=== PATIENT | female | born 1945 | race Caucasian/White ===

== ENCOUNTER → 2016-07-27 | Outpatient (CLI) | payer OTHER ==
[2015-08-26 11:27] VITALS: BP 136/63
[2016-07-27 11:23] LABS: BASOPHILS # (AUTO) 0.1 X10^3/uL (0.0-0.1); BASOPHILS % (AUTO) 0.8 % (0.2-1.0); EOSINOPHILS # (AUTO) 0.1 x10^3/uL (0.0-0.2); EOSINOPHILS % (AUTO) 1.3 % (0.9-2.9); HEMATOCRIT 36.6 % (36.0-47.0); HEMOGLOBIN 11.9 g/dL (12.0-16.0); LYMPHOCYTES # (AUTO) 1.8 X10^3/uL (1.3-2.9); LYMPHOCYTES % (AUTO) 27.6 % (21.0-51.0); MEAN CORPUSCULAR HEMOGLOBIN 24.8 pg (27.0-34.0); MEAN CORPUSCULAR HGB CONC 32.4 g/dL (33.0-35.0); MEAN CORPUSCULAR VOLUME 76.5 fL (80.0-100.0); MEAN PLATELET VOLUME 8.7 fL (7.4-11.0); MONOCYTES # (AUTO) 0.5 x10^3/uL (0.3-0.8); NEUTROPHILS # (AUTO) 4.2 x10^3/uL (2.2-4.8); NEUTROPHILS % (AUTO) 63.3 % (42.0-75.0); PLATELET COUNT 196 X10^3/uL (150.0-450.0); RED BLOOD COUNT 4.79 X10^6/uL (3.5-5.4); RED CELL DISTRIBUTION WIDTH 16.8 % (11.6-16.5); WHITE BLOOD COUNT 6.7 X10^3/uL (3.6-10.0)
[2016-07-27 11:39] LABS: ALBUMIN 3.1 g/dL (3.4-5.0); BLOOD UREA NITROGEN 17 mg/dL (7-18); CALCIUM 8.5 mg/dL (8.5-10.1); CHLORIDE 109 mmol/L (98-107); CHOL/HDL RATIO 2.9 (0.0-5.0); CHOLESTEROL 144 mg/dL (0-200); COR CA(FOR HYPOALB) 9.2 mg/dL (8.5-10.1); COR NA(FOR HYPERGLY) 146 mmol/L (136-145); CREATININE 1.03 mg/dL (0.55-1.02); GLUCOSE 118 mg/dL (65-99); HDL CHOLESTEROL 50 mg/dL (40-60); PHOSPHORUS 3.5 mg/dL (2.6-4.7); SODIUM 146 mmol/L (136-145); TRIGLYCERIDES 174 mg/dL (0-150); eGFR BLACK RACES > 60 (>60); eGFR NON BLACK RACES 56 (>60)
[2016-07-27 11:54] LABS: PLATELET MORPHOLOGY COMMENT NORMAL (NORMAL)
== END ==
LOC: LAB 11:01
PROVIDERS: ATTEND Internal Medicine
DX: I12.9 Hypertensive chronic kidney disease with stage 1 through stage 4 chronic kidney disease, or unspecified chronic kidney disease (principal); N18.3 Chronic kidney disease, stage 3 (moderate)
CPT/HCPCS: 36415; 80061; 80069; 84550; 85025

== ENCOUNTER → 2016-09-13 | Outpatient (CLI) | payer OTHER ==
[2015-08-26 11:27] VITALS: BP 136/63
--- NOTE | 2016-09-13 14:42 | RAD ---
HISTORY: Lumbar radiculopathy Study: Lumbar spine three view Comparison: None Findings: The bones are osteopenic. The alignment is normal. The vertebral bodies are of average height. The d isc spaces are preserved with the exception of narrowing at L5-S1. The pedicles are intact. The SI j oints are normal. Facet degenerative joint disease is present in the lower lumbar spine bilaterally. IMPRESSION: Degenerative disc disease L5-S1. Facet degenerative joint disease. Osteopenia Reported By:
== END | disposition home or self-care (01) | DRG 552 ==
LOC: RAD 13:35
PROVIDERS: ATTEND Nurse Practitioner Family
DX: M54.5 Low back pain (principal); M54.17 Radiculopathy, lumbosacral region; M51.37 Other intervertebral disc degeneration, lumbosacral region
CPT/HCPCS: 72100

== ENCOUNTER → 2016-10-05 | Outpatient (CLI) | payer OTHER ==
[2015-08-26 11:27] VITALS: BP 136/63
--- NOTE | 2016-10-05 14:20 | MRI ---
HISTORY: Radiculopathy. Study: MRI lumbar spine without contrast. Comparison: Lumbar spine series dated September 13, 2016, CT abdomen/pelvis dated May 06, 2015, and at renal ultrasound dated May 06, 2015. Technique: Multiplanar multi-sequence MRI of the lumbar spine was obtained. Sagittal T1, sagittal T 2, and stir weighted images, axial T1, and axial T2 images were obtained. Findings: Anatomic alignment without obvious fracture or listhesis. Multilevel disc desiccation without signif icant disc height loss. The visualized bone marrow signal appears normal. The conus medullaris termi nates at L1. New and partially visualized 2.3 cm left inferior renal pole cystic lesion. Remaining s oft tissue appears normal. L1 -- L2: No significant disc bulge, neural foraminal narrowing, or spinal canal stenosis. L2 -- L3: No significant disc bulge, neural foraminal narrowing, or spinal canal stenosis. L3 -- L4: Broad-based disc bulge without evidence of neural foraminal narrowing or spinal canal sten osis. L4 -- L5: Broad-based disc bulge without evidence of neural foraminal narrowing or spinal canal sten osis. L5 -- S1: Broad-based disc bulge that extends into the lateral recesses causing mild bilateral neura l foraminal narrowing. No significant spinal canal stenosis. IMPRESSION: 1. Broad-based disc bulge that extends into the lateral recesses causing mild bilateral neural marilyn inal narrowing. No significant spinal canal stenosis. 2. Incompletely visualized 2.3 cm left inferior renal pole cystic lesion. Consider dedicated renal u ltrasound for further characterization. Reported By:
== END | disposition home or self-care (01) | DRG 552 ==
LOC: RAD 12:51
PROVIDERS: ATTEND Nurse Practitioner
DX: M54.17 Radiculopathy, lumbosacral region (principal); M51.26 Other intervertebral disc displacement, lumbar region
CPT/HCPCS: 72148

== ENCOUNTER → 2016-11-08 | Outpatient (CLI) | payer OTHER ==
[2015-08-26 11:27] VITALS: BP 136/63
[2016-11-08 09:52] LABS: BASOPHILS % (AUTO) 0.7 % (0.2-1.0); EOSINOPHILS # (AUTO) 0.2 x10^3/uL (0.0-0.2); EOSINOPHILS % (AUTO) 2.4 % (0.9-2.9); HEMATOCRIT 34.4 % (36.0-47.0); HEMOGLOBIN 11.2 g/dL (12.0-16.0); LYMPHOCYTES # (AUTO) 2.3 X10^3/uL (1.3-2.9); LYMPHOCYTES % (AUTO) 35.7 % (21.0-51.0); MEAN CORPUSCULAR HEMOGLOBIN 25.3 pg (27.0-34.0); MEAN CORPUSCULAR HGB CONC 32.7 g/dL (33.0-35.0); MEAN CORPUSCULAR VOLUME 77.4 fL (80.0-100.0); MEAN PLATELET VOLUME 9.7 fL (7.4-11.0); MONOCYTES # (AUTO) 0.6 x10^3/uL (0.3-0.8); MONOCYTES % (AUTO) 9.1 % (0.0-13.0); NEUTROPHILS # (AUTO) 3.3 x10^3/uL (2.2-4.8); NEUTROPHILS % (AUTO) 52.1 % (42.0-75.0); PLATELET COUNT 199 X10^3/uL (150.0-450.0); RED BLOOD COUNT 4.45 X10^6/uL (3.5-5.4); RED CELL DISTRIBUTION WIDTH 17.6 % (11.6-16.5); WHITE BLOOD COUNT 6.3 X10^3/uL (3.6-10.0)
[2016-11-08 10:57] LABS: HYPOCHROMASIA SLIGHT; PLATELET MORPHOLOGY COMMENT NORMAL (NORMAL)
[2016-11-09 09:37] LABS: ALBUMIN 3.4 g/dL (3.4-5.0); BLOOD UREA NITROGEN 14 mg/dL (7-18); CALCIUM 8.5 mg/dL (8.5-10.1); CARBON DIOXIDE 29.1 mmol/L (21-32); CHLORIDE 109 mmol/L (98-107); CHOL/HDL RATIO 2.4 (0.0-5.0); CHOLESTEROL 153 mg/dL (0-200); COR NA(FOR HYPERGLY) 146 mmol/L (136-145); CREATININE 0.95 mg/dL (0.55-1.02); GLUCOSE 127 mg/dL (65-99); HDL CHOLESTEROL 63 mg/dL (40-60); PHOSPHORUS 3.7 mg/dL (2.6-4.7); SODIUM 145 mmol/L (136-145); TRIGLYCERIDES 106 mg/dL (0-150); eGFR BLACK RACES > 60 (>60); eGFR NON BLACK RACES > 60 (>60)
== END ==
LOC: LAB 08:52
PROVIDERS: ATTEND Internal Medicine
DX: I12.9 Hypertensive chronic kidney disease with stage 1 through stage 4 chronic kidney disease, or unspecified chronic kidney disease (principal); N18.3 Chronic kidney disease, stage 3 (moderate)
CPT/HCPCS: 36415; 80061; 80069; 85025

== ENCOUNTER → 2016-12-02 | Outpatient (CLI) | payer OTHER ==
[2015-08-26 11:27] VITALS: BP 136/63
--- NOTE | 2016-12-05 08:22 | RAD ---
HISTORY: Left hip pain, nontraumatic Study: Left hip AP, frog-leg lateral, AP pelvis Comparison: None Findings: The pelvic bones and SI joints are intact. The left hip joint is intact. There is mild degenerative j oint space narrowing present. No joint erosions are noted. No fracture, lytic, or blastic lesion is i dentified. IMPRESSION: Mild degenerative joint space narrowing left hip Reported By:
== END | disposition home or self-care (01) ==
LOC: RAD 16:37
PROVIDERS: ATTEND Orthopaedic Surgery Orthopaedic Surgery of the Spine
DX: M25.552 Pain in left hip (principal); M16.12 Unilateral primary osteoarthritis, left hip
CPT/HCPCS: 73501

== ENCOUNTER → 2017-01-30 | Outpatient (CLI) | payer OTHER ==
[2015-08-26 11:27] VITALS: BP 136/63
== END ==
LOC: RAD 11:36
PROVIDERS: ATTEND Internal Medicine
DX: Z12.31 Encounter for screening mammogram for malignant neoplasm of breast (principal)
CPT/HCPCS: 77067

== ENCOUNTER → 2017-03-13 | Outpatient (CLI) | payer OTHER ==
[2015-08-26 11:27] VITALS: BP 136/63
[2017-03-13 09:22] LABS: BASOPHILS # (AUTO) 0.1 X10^3/uL (0.0-0.1); EOSINOPHILS # (AUTO) 0.1 x10^3/uL (0.0-0.2); EOSINOPHILS % (AUTO) 1.5 % (0.9-2.9); HEMATOCRIT 35.2 % (36.0-47.0); HEMOGLOBIN 11.3 g/dL (12.0-16.0); LYMPHOCYTES # (AUTO) 1.8 X10^3/uL (1.3-2.9); LYMPHOCYTES % (AUTO) 25.7 % (21.0-51.0); MEAN CORPUSCULAR HEMOGLOBIN 24.5 pg (27.0-34.0); MEAN CORPUSCULAR HGB CONC 32.2 g/dL (33.0-35.0); MEAN CORPUSCULAR VOLUME 76.1 fL (80.0-100.0); MEAN PLATELET VOLUME 8.8 fL (7.4-11.0); MONOCYTES # (AUTO) 0.6 x10^3/uL (0.3-0.8); MONOCYTES % (AUTO) 8.9 % (0.0-13.0); NEUTROPHILS # (AUTO) 4.3 x10^3/uL (2.2-4.8); NEUTROPHILS % (AUTO) 62.9 % (42.0-75.0); PLATELET COUNT 205 X10^3/uL (150.0-450.0); RED BLOOD COUNT 4.63 X10^6/uL (3.5-5.4); RED CELL DISTRIBUTION WIDTH 16.7 % (11.6-16.5); WHITE BLOOD COUNT 6.9 X10^3/uL (3.6-10.0)
[2017-03-13 09:24] LABS: ALBUMIN 3.4 g/dL (3.4-5.0); BLOOD UREA NITROGEN 17 mg/dL (7-18); CALCIUM 8.8 mg/dL (8.5-10.1); CARBON DIOXIDE 28.5 mmol/L (21-32); CHLORIDE 109 mmol/L (98-107); CHOL/HDL RATIO 2.6 (0.0-5.0); CHOLESTEROL 154 mg/dL (0-200); CREATININE 1.03 mg/dL (0.55-1.02); HDL CHOLESTEROL 60 mg/dL (40-60); PHOSPHORUS 3.5 mg/dL (2.6-4.7); SODIUM 143 mmol/L (136-145); TRIGLYCERIDES 164 mg/dL (0-150); URIC ACID 4.1 mg/dL (2.6-6.0); eGFR BLACK RACES > 60 (>60); eGFR NON BLACK RACES 56 (>60)
[2017-03-13 10:03] LABS: HYPOCHROMASIA SLIGHT; PLATELET MORPHOLOGY COMMENT NORMAL (NORMAL)
== END ==
LOC: LAB 08:35
PROVIDERS: ATTEND Internal Medicine
DX: I12.9 Hypertensive chronic kidney disease with stage 1 through stage 4 chronic kidney disease, or unspecified chronic kidney disease (principal); N18.3 Chronic kidney disease, stage 3 (moderate)
CPT/HCPCS: 36415; 80061; 80069; 84550; 85025

== ENCOUNTER 2017-05-28 12:31 | Inpatient (IN) | payer OTHER ==
[2017-05-28] MEDS ORDERED: ASPIRIN 81 MG CHEWTAB ONE (12:40)
[2017-05-28] MEDS: NITROSTAT SL PRN ×2 (13:10→13:15)
--- NOTE | 2017-05-28 13:11 | DR.GENAD ---
HPI - PCP Primary Care Physician: David - Complaint/Symptoms Chief Complaint Doctors Comments: Patient presents with chest pressure since last ngiht associated with dyspnea. The pressure is non-radiating. In 1997 had heart stent and by-pass surgery in June. She was diagnosed with kidney disease in 2016 due to blood pressure issures; has not been on dialysis. Chief Complaint:: "Last night I started having a lot of pressure in the center of my chest. It got so bad I had to leave buddhism. I have also had some shortness of breath." Self Treatment fo Chief Complaint: PT took 81mg ASA this morning. - Source History Provided: Patient - Mode of Arrival Mode of Arrival: Ambulatory - Timing Onset of Chief Complaint: 05/27/17 PMH - PMH Past Medical History: Yes Past Medical History: Angina, Anxiety, Arthritis, COPD, Coronary Artery Disease , Depression, Dyslipidemia, GERD, Hypertension, [place] Past Surgical History: Yes Surgical History: Angioplasty/Stents, Cholecystectomy, Hysterectomy - Family History History of Family Medical Conditions: Yes Family Medical History: Diabetes Mellitus, Cancer, Coronary Artery Disease, Hypertension - Social History Does patient currently use any type of tobacco product: No Have you used tobacco products in the last 12 months: No Type of Tobacco Use: None Does any household member use tobacco: No Alcohol Use: None Do you use any recreational Drugs:: No Lives With: Family Lives Where: Home - infectious screening In the last 2 months have you had wt loss of >10#?: NO Have you had fever, night sweats or hemotysis?: No Have you traveled outside the country in the last 6 months?: No Isolation: Standard ROS - Review of Systems Eyes: No Symptoms Reported ENTM: No Symptoms Reported Respiratoy: No Symptoms Reported Cardiovascular: No Symptoms Reported Gastrointestinal/Abdominal: No Symptoms Reported Genitourinary: No Symptoms Reported Neurological: No Symptoms Reported Musculoskeletal: No Symptoms Reported Integumentary: No Symptoms Reported Hematologic/Lymphatic: No Symptoms Reported Psychiatric: No Symptoms Reported All Other Systems: Reviewed and Negative PE - Vital Signs Vitals: Temperature 98.4 F Pulse Rate [Apical] 80 Pulse Rate 82 Respiratory Rate 18 Blood Pressure [Left Arm] 172/79 Blood Pressure [Right Arm] 126/60 Blood Pressure 119/55 O2 Sat by Pulse Oximetry 98 - General Limitations: No Limitations General Appearance: Alert, In No Apparent Distress - Head Head Exam: Normal Inspection, Atraumatic - Eyes Eye exam: Normal Appearance, PERRL, EOMI - ENT ENT Exam: Normal Exam External Ear Exam: Normal External Inspection TM/Canal Exam: Bilateral Normal Nose Exam: Normal Nose Exam Mouth Exam: Normal Inspection Throat Exam: Normal Inspection - Neck Neck Exam: Normal Inspection, Full ROM - Chest Chest Inspection: Normal Inspection - Respiratory Respiratory Exam: Normal Lung Sounds Bilat Respiratory Exam: Bilateral Clear to Auscultation - Cardiovascular Cardiovascular Exam: Regular Rate, Normal Rhythm - Abdominal Exam Abdominal Exam: Normal Inspection, Normal Bowel Sounds Abdominal Tenderness: negative: RUQ, RLQ, LUQ, LLQ, Epigastrium, Suprapubic, Diffuse, Mild, Moderate, Severe, Other - Extremities Extremities Exam: Normal Inspection, Full ROM - Back Back Exam: Normal Inspection, Full ROM - Neurologic Neurological Exam: Alert, Oriented X3, CN II-XII Intact - Skin Skin Exam: Warm Course - Reevaluation 1st: Improved - Consultation Called: 15:10 (Dr Richard agreed to admit for chest pain protocol) ROR - Labs Reviewed Result Diagrams: 05/28/17 13:25 05/28/17 13:25 Laboratory: WBC 8.1 X10^3/uL (3.6-10.0) 05/28/17 13:25 RBC 4.33 X10^6/uL (3.5-5.4) 05/28/17 13:25 Hgb 10.9 g/dL (12.0-16.0) L 05/28/17 13:25 Hct 33.3 % (36.0-47.0) L 05/28/17 13:25 MCV 76.8 fL (80.0-100.0) L 05/28/17 13:25 MCH 25.1 pg (27.0-34.0) L 05/28/17 13:25 MCHC 32.7 g/dL (33.0-35.0) L 05/28/17 13:25 RDW 17.1 % (11.6-16.5) H 05/28/17 13:25 Plt Count 202 X10^3/uL (150.0-450.0) 05/28/17 13:25 Plt Count Comment Adequate (ADEQUATE) 05/28/17 13:25 MPV 8.6 fL (7.4-11.0) 05/28/17 13:25 Neut % 62.4 % (42.0-75.0) 05/28/17 13:25 Lymph % 27.8 % (21.0-51.0) 05/28/17 13:25 [place] % 8.7 % (0.0-13.0) 05/28/17 13:25 Eos % 0.8 % (0.9-2.9) L 05/28/17 13:25 Baso % 0.3 % (0.2-1.0) 05/28/17 13:25 Neut # 5.0 x10^3/uL (2.2-4.8) H 05/28/17 13:25 Lymph # 2.2 X10^3/uL (1.3-2.9) 05/28/17 13:25 [place] # 0.7 x10^3/uL (0.3-0.8) 05/28/17 13:25 Eos # 0.1 x10^3/uL (0.0-0.2) 05/28/17 13:25 Baso # 0.0 X10^3/uL (0.0-0.1) 05/28/17 13:25 Absolute Nucleated RBC 0.0 /100WBC 05/28/17 13:25 Plt Morphology Comment Normal (NORMAL) 05/28/17 13:25 RBC Morphology Abnormal (NORMAL) A 05/28/17 13:25 Hypochromasia Slight A 05/28/17 13:25 Anisocytosis Slight A 05/28/17 13:25 Microcytosis Slight A 05/28/17 13:25 INR Target Range - 05/28/17 13:25 INR 0.98 (0.8-1.3) 05/28/17 13:25 PTT 24.7 SECONDS (22.9-36.5) 05/28/17 13:25 PTT Comment - 05/28/17 13:25 D-Dimer 1140 ng/mL (0-400) H* 05/28/17 13:25 Sodium 142 mmol/L (136-145) 05/28/17 13:25 Corrected Sodium TNP 05/28/17 13:25 Potassium 4.0 mmol/L (3.5-5.1) 05/28/17 13:25 Chloride 106 mmol/L (98-107) 05/28/17 13:25 Carbon Dioxide 30.2 mmol/L (21-32) 05/28/17 13:25 BUN 19 mg/dL (7-18) H 05/28/17 13:25 Creatinine 1.21 mg/dL (0.55-1.02) H 05/28/17 13:25 Est GFR (MDRD) Af Amer 56 (>60) L 05/28/17 13:25 Est GFR (MDRD) Non-Af 46 (>60) L 05/28/17 13:25 Glucose 104 mg/dL (65-99) H 05/28/17 13:25 Calcium 9.2 mg/dL (8.5-10.1) 05/28/17 13:25 Corrected Calcium 9.8 mg/dL (8.5-10.1) 05/28/17 13:25 Magnesium 2.0 mg/dL (1.7-2.9) 05/28/17 13:25 Total Bilirubin 0.40 mg/dL (0.2-1.0) 05/28/17 13:25 AST 24 Units/L (15-37) 05/28/17 13:25 ALT 22 Units/L (12-78) 05/28/17 13:25 Alkaline Phosphatase 108 Units/L (46-116) 05/28/17 13:25 Creatine Kinase 84 Units/L (26-192) 05/28/17 13:25 CK-MB (CK-2) < 1.0 ng/mL (0-4.0) 05/28/17 13:25 CK/CKMB % Calc 1.2 % (<4) 05/28/17 13:25 Troponin I < 0.02 ng/mL (0-1.5) 05/28/17 13:25 Total Protein 6.9 g/dL (6.4-8.2) 05/28/17 13:25 Albumin 3.2 g/dL (3.4-5.0) L 05/28/17 13:25 Globulin 3.7 g/dL (2.5-4.5) 05/28/17 13:25 Albumin/Globulin Ratio 0.9 Ratio (1.1-2.1) L 05/28/17 13:25 - XRAY XRAY Interpreted by: Radiologist (Chest: The patient is rotated. The cardiac silhouette is at the upper limits of normal. Interstitial changes are seen within both lungs. The aortic knob is partially calcified. Impression: intersitial changes without evidence of focal consolidation. CTA: No acute pulmonary emboli) - EKG [place]: LAD Rhythm: NSR ST: Lat, Ischemia - Diagnosis Discharge Problem: Chest pain Qualifiers: Chest pain type: unspecified Qualified Code(s): R07.9 - Chest pain, unspecified - Discharge Plan Condition: Stable - Follow ups/Referrals Follow ups/Referrals: Luis Alberto Hernandez [Primary Care Provider] - 3 days - Instructions
[2017-05-28] MEDS: NS 1000 ML 1,000 ML IV SCH ×2 (13:28→21:27)
--- NOTE | 2017-05-28 13:33 | RAD ---
HISTORY: Chest pressure Study: Single-view of the chest Comparison: None Findings: The patient is rotated. The cardiac silhouette is at the upper limits of normal. Interstitial changes are seen within both lungs. The aortic knob is partially calcified. IMPRESSION: Interstitial changes without evidence of focal consolidation. Reported By:
[2017-05-28] MEDS ORDERED: MORPHINE SULFATE INJ 4 MG ONE (13:34)
[2017-05-28 13:35] LABS: BASOPHILS % (AUTO) 0.3 % (0.2-1.0); EOSINOPHILS # (AUTO) 0.1 x10^3/uL (0.0-0.2); EOSINOPHILS % (AUTO) 0.8 % (0.9-2.9); HEMATOCRIT 33.3 % (36.0-47.0); HEMOGLOBIN 10.9 g/dL (12.0-16.0); LYMPHOCYTES # (AUTO) 2.2 X10^3/uL (1.3-2.9); LYMPHOCYTES % (AUTO) 27.8 % (21.0-51.0); MEAN CORPUSCULAR HEMOGLOBIN 25.1 pg (27.0-34.0); MEAN CORPUSCULAR HGB CONC 32.7 g/dL (33.0-35.0); MEAN CORPUSCULAR VOLUME 76.8 fL (80.0-100.0); MEAN PLATELET VOLUME 8.6 fL (7.4-11.0); MONOCYTES # (AUTO) 0.7 x10^3/uL (0.3-0.8); MONOCYTES % (AUTO) 8.7 % (0.0-13.0); NEUTROPHILS % (AUTO) 62.4 % (42.0-75.0); PLATELET COUNT 202 X10^3/uL (150.0-450.0); RED BLOOD COUNT 4.33 X10^6/uL (3.5-5.4); RED CELL DISTRIBUTION WIDTH 17.1 % (11.6-16.5); WHITE BLOOD COUNT 8.1 X10^3/uL (3.6-10.0)
[2017-05-28] MEDS ORDERED: MORPHINE SULFATE INJ 4 MG IVP ONE (13:40)
[2017-05-28 13:41] LABS: HYPOCHROMASIA SLIGHT; PLATELET MORPHOLOGY COMMENT NORMAL (NORMAL)
[2017-05-28 13:42] LABS: ANISOCYTOSIS SLIGHT; MICROCYTOSIS SLIGHT
[2017-05-28 13:59] LABS: BLOOD UREA NITROGEN 19 mg/dL (7-18); CALCIUM 9.2 mg/dL (8.5-10.1); CARBON DIOXIDE 30.2 mmol/L (21-32); CHLORIDE 106 mmol/L (98-107); CREATININE 1.21 mg/dL (0.55-1.02); SODIUM 142 mmol/L (136-145); TROPONIN I < 0.02 ng/mL (0-1.5); eGFR BLACK RACES 56 (>60); eGFR NON BLACK RACES 46 (>60)
[2017-05-28 14:04] LABS: ALANINE AMINOTRANSFERASE 22 Units/L (12-78); ALBUMIN 3.2 g/dL (3.4-5.0); ALKALINE PHOSPHATASE 108 Units/L (46-116); ASPARTATE AMINO TRANSFERASE 24 Units/L (15-37); CKMB % 1.2 % (<4); COR CA(FOR HYPOALB) 9.8 mg/dL (8.5-10.1); CREATINE KINASE 84 Units/L (26-192); CREATINE KINASE MB < 1.0 ng/mL (0-4.0); TOTAL PROTEIN 6.9 g/dL (6.4-8.2)
[2017-05-28] MEDS ORDERED: ZOFRAN INJ 4 MG VIAL ONE (14:43)
[2017-05-28] MEDS ORDERED: NS 100 ML IV 100 ML IV ONE (15:00)
--- NOTE | 2017-05-28 16:01 | CT ---
HISTORY: Chest pressure, elevated D-dimer Study: CTA chest Comparison: CT 09/16/2013 Technique: Multiple axial images of the chest were obtained after the administration of IV contrast. 3D reconstructions were performed utilizing radial maximum intensity projection imaging. Dose reduct ion techniques including Automated Exposure Control (AEC) and adjustment of mA and kV were utilized. Findings: Contrast opacification of the pulmonary arteries is adequate to the level of the segmental branches. No evidence of acute pulmonary emboli. Normal-sized heart post CABG. Atherosclerotic plaque is seen t hroughout the aorta without evidence of aneurysm or dissection. The lungs are clear without effusion, consolidation, or pneumothorax. Airways are patent. The soft tissues and osseous structures appear intact. The visualized portions of the upper abdomen a re grossly unremarkable. IMPRESSION: 1.No acute pulmonary emboli. Reported By:
[2017-05-28] MEDS ORDERED: ZOFRAN INJ 4 MG VIAL IVP PRN (16:27)
[2017-05-28 20:05] LABS: CREATINE KINASE 74 Units/L (26-192); CREATINE KINASE MB < 1.0 ng/mL (0-4.0); TROPONIN I < 0.02 ng/mL (0-1.5)
[2017-05-28 20:08] LABS: CKMB % 1.4 % (<4)
[2017-05-28] MEDS ORDERED: PATIENT'S HOME MEDICATION (Rosuvastatin Calcium [Crestor] 40 MG) PO SCH (21:00)
[2017-05-28] MEDS ORDERED: PATIENT'S HOME MEDICATION (Omeprazole [Prilosec 40 Mg] 40 MG) PO SCH (21:00)
[2017-05-28] MEDS ORDERED: NEURONTIN CAP 400 MG PO SCH (21:00)
[2017-05-28] MEDS ORDERED: TEMAZEPAM PO SCH (21:00)
[2017-05-28] MEDS: CRESTOR TAB 10 MG PO SCH (21:20)
[2017-05-28] MEDS: APRESOLINE TAB 25 MG PO SCH (21:21)
[2017-05-28] MEDS: NEURONTIN CAP 100 MG PO SCH (21:22)
[2017-05-28] MEDS: RESTORIL CAP 30 MG PO SCH (21:23)
[2017-05-28] MEDS: PriLOSEC PO SCH (21:23)
[2017-05-28] MEDS: ALDOMET PO SCH (21:23)
[2017-05-28] MEDS ORDERED: PATIENT'S HOME MEDICATION (Hydralazine Hcl [Hydralazine Hcl] 1 TAB) PO SCH (22:00)
[2017-05-29 02:17] LABS: CKMB % 1.5 % (<4); CREATINE KINASE 67 Units/L (26-192); CREATINE KINASE MB < 1.0 ng/mL (0-4.0); TROPONIN I < 0.02 ng/mL (0-1.5)
[2017-05-29] MEDS: ALDOMET PO SCH (05:18)
[2017-05-29] MEDS: NS 1000 ML 1,000 ML IV SCH ×3 (05:18→21:59)
[2017-05-29] MEDS: APRESOLINE TAB 25 MG PO SCH ×3 (05:18→21:40)
[2017-05-29 05:31] LABS: BASOPHILS % (AUTO) 0.5 % (0.2-1.0); EOSINOPHILS # (AUTO) 0.1 x10^3/uL (0.0-0.2); EOSINOPHILS % (AUTO) 1.9 % (0.9-2.9); HEMATOCRIT 29.2 % (36.0-47.0); HEMOGLOBIN 9.7 g/dL (12.0-16.0); LYMPHOCYTES # (AUTO) 2.1 X10^3/uL (1.3-2.9); LYMPHOCYTES % (AUTO) 32.9 % (21.0-51.0); MEAN CORPUSCULAR HEMOGLOBIN 25.6 pg (27.0-34.0); MEAN CORPUSCULAR HGB CONC 33.1 g/dL (33.0-35.0); MEAN CORPUSCULAR VOLUME 77.3 fL (80.0-100.0); MEAN PLATELET VOLUME 9.2 fL (7.4-11.0); MONOCYTES # (AUTO) 0.6 x10^3/uL (0.3-0.8); MONOCYTES % (AUTO) 9.8 % (0.0-13.0); NEUTROPHILS # (AUTO) 3.6 x10^3/uL (2.2-4.8); NEUTROPHILS % (AUTO) 54.9 % (42.0-75.0); PLATELET COUNT 168 X10^3/uL (150.0-450.0); RED BLOOD COUNT 3.77 X10^6/uL (3.5-5.4); RED CELL DISTRIBUTION WIDTH 17.1 % (11.6-16.5); WHITE BLOOD COUNT 6.5 X10^3/uL (3.6-10.0)
[2017-05-29 05:37] LABS: CHOL/HDL RATIO 3.3 (0.0-5.0)
[2017-05-29 05:47] LABS: ANISOCYTOSIS SLIGHT; HYPOCHROMASIA SLIGHT; PLATELET MORPHOLOGY COMMENT NORMAL (NORMAL)
--- NOTE | 2017-05-29 06:30 | RAD ---
HISTORY: Chest pain Study: Chest AP portable Comparison: 05/28/2017 chest x-ray and chest CT Findings: The heart is enlarged. No congestive heart failure is noted. The aorta is calcified. The lung hernadez are clear. No pleural effusions are identified. The bony thorax is unremarkable. The patient is statu s post median sternotomy and CABG. IMPRESSION: Cardiomegaly without congestive heart failure Lungs clear Reported By:
[2017-05-29] MEDS ORDERED: LEXAPRO ONE (07:51)
[2017-05-29] MEDS: LEXAPRO PO SCH (08:10)
[2017-05-29] MEDS: MICRO K EXTEN CAP 10 MEQ PO SCH (08:10)
[2017-05-29] MEDS: PriLOSEC PO SCH ×2 (08:10→21:42)
[2017-05-29 08:49] LABS: ALANINE AMINOTRANSFERASE 19 Units/L (12-78); ALBUMIN 2.5 g/dL (3.4-5.0); ALKALINE PHOSPHATASE 98 Units/L (46-116); ASPARTATE AMINO TRANSFERASE 22 Units/L (15-37); BLOOD UREA NITROGEN 17 mg/dL (7-18); CALCIUM 7.7 mg/dL (8.5-10.1); CARBON DIOXIDE 24.9 mmol/L (21-32); CHLORIDE 109 mmol/L (98-107); COR CA(FOR HYPOALB) 8.9 mg/dL (8.5-10.1); CREATININE 1.05 mg/dL (0.55-1.02); SODIUM 143 mmol/L (136-145); TOTAL PROTEIN 5.6 g/dL (6.4-8.2); eGFR BLACK RACES > 60 (>60); eGFR NON BLACK RACES 55 (>60)
[2017-05-29] MEDS ORDERED: PATIENT'S HOME MEDICATION (Potassium Chloride [Potassium Chloride] 10 MEQ) PO SCH (09:00)
[2017-05-29] MEDS ORDERED: PATIENT'S HOME MEDICATION (Escitalopram Oxalate [Escitalopram Oxalate] 20 MG) PO SCH (09:00)
--- NOTE | 2017-05-29 09:36 | DR.H&P ---
H&P - History & Physical for Day of: H&P Date: 05/28/17 - Chief Complaint Chief Complaint: chest pain, short of breath - Allergies Allergies/Adverse Reactions: Allergies Allergy/AdvReac Type Severity Reaction Status Date / Time labetalol Allergy Verified 05/28/17 17:22 ranitidine Allergy Verified 05/28/17 12:33 - History of Present Illness History of Present Illness: is a 72 year old patient of ours who presented to ER with complaints of chest pain/pressure and dyspnea. Patient states Last night I started having a lot of pressure in the center of my chest. Patient reports that the pain is non-radiating. She rates pain 6/10. Patient has a history significant to Angioplasty/stents, by-pass surgery, and kidney disease related to blood pressure. On arrival, vital signs were 97.8, 76, 17, 97 %RA, 179/82. Labs were obtained. Abnormal Labs include the following: Hgb 10.9, Hct 33.3, MCV 76.8, MCH 25.1, MCHC 32.7, RDW 17.1, D-Dimer 1140, BUN 19, Creatinine 1.21, GFR (AA) 56, GFR (NON) 46, Glucose 104, Albumin 3.2, A/G ratio 0.9. Cardiac enzymes within normal limits. EKG reported: Sinus rhythm with HR of 91. Chest Xray reported: Interstitial changes without evidence of focal consolidation. A chest CTA was obtained due to elevated D-dimer. It reported No acute pulmonary emboli. She was given Morphine 4mg IVP x 1 dose and nitroglycerine 0.4mg sl x 1 dose. She reported mild improvement in pain. We admitted patient for further evaluation and treatment. She will be placed on the district captain. We will obtain serial EKGs and cardiac enzymes. We plan to follow up with AM labs and continue to monitor patient. - Past Medical History Past Medical History: Angina, Anxiety, Arthritis, COPD, Coronary Artery Disease , Depression, Dyslipidemia, GERD, Hypertension, [place] Additional Medical History: Frequent UTI's, Cervicalgia, Hx TIA, Micro-vascular disease, Multi-nodular goiter - Past Surgical History Surgical History: Appendectomy, , Cholecystectomy, Hysterectomy - Family History Family Medical History: Cancer, [place], Sudden Cardiac - Social History Does patient currently use any type of tobacco product: No Have you used tobacco products in the last 12 months: No Type of Tobacco Use: Cigarettes How many years tobacco product used: 30 Does any household member use tobacco: No Alcohol Use: None Drug Use: None - Medications Home Medications: Aspirin EC [ASPIRIN EC 81 MG *] 81 mg PO DAILY 05/28/17 [History Confirmed 05/28] Clonidine HCl [CATAPRES 0.1 MG TAB *] 0.1 mg PO TID 05/28/17 [History Confirmed 05/28/17] Hydralazine HCl 1 tab PO TID 05/28/17 [History Confirmed 05/28/17] Loratadine [Claritin] 10 mg PO DAILY 05/28/17 [History Confirmed 05/28/17] Methyldopa [ALDOMET 250 MG *] 2 tab PO TID 05/28/17 [History Confirmed 05/28/17] Montelukast Sodium [SINGULAIR TAB 10 MG *] 10 mg PO DAILY 05/28/17 [History Confirmed 05/28/17] - Review of Systems Constitutional: No Symptoms Reported. denies: Fever, Chills, Sweats, Weakness, Malaise, Other Eyes: No Symptoms Reported. denies: See HPI, Pain, Vision Change, Conjunctivae Inflammation, Eyelid Inflammation, Redness, Other ENT: No Symptoms Reported. denies: See HPI, Ear Pain, Ear Discharge, Nose Pain , Nose Discharge, Nose Congestion, Mouth Pain, Mouth Swelling, Throat Pain, Throat Swelling, Other Respiratory: Shortness of Breath. denies: Cough, Dry, Hemoptysis, SOB with Excertion, Pleuritic Pain, Sputum, Wheezing Cardiovascular: Chest Pain, See HPI, Palpitations. denies: Orthopnea, Paroxysmal Noc. Dyspnea, Edema, Light Headedness Gastrointestinal: No Symptoms Reported. denies: See HPI, Nausea, Vomiting, Abdominal Pain, Diarrhea, Constipation, Melena, Hematochezia, Other Genitourinary: No Symptoms Reported. denies: See HPI, Dysuria, Frequency, Incontinence, Hematuria, Retention, Other Musculoskeletal: No Symptoms Reported. denies: See HPI, Shoulder Pain, Arm Pain , Back Pain, Hand Pain, Leg Pain, Foot Pain, Neck Pain, Other Skin: No Symptoms Reported. denies: See HPI, Rash, Lesions, Jaundice, Bruising , Wound, Ecchymosis, Other Neurological: No Symptoms Reported - Physical Exam Vital Signs: Temperature 97.0 F Pulse Rate [Apical] 87 Pulse Rate 82 Respiratory Rate 23 Blood Pressure [Left Arm] 157/70 Blood Pressure [Right Arm] 126/60 Blood Pressure 119/55 O2 Sat by Pulse Oximetry 96 Oriented: Normal Eyes: Normal. negative: Blurred Vision, Diplopia, Discharge, Pain, Redness, Photophobia, Other Ear: Normal. negative: Right, Left, Swelling, Ecchymosis, Hemotypanum, Abrasion , Laceration Nose: Normal. negative: Injected, Discharge, Blood, Other Throat: Normal. negative: Tonsillar Hypertrophy, Red, Exudate, Dry, Other Respiratory: Clear Throughout Cardiovascular: Normal. negative: Tachycardia, Bradycardia, Irregular, S3, S4, Systolic, Diastolic, Murmur, Edema, Other : Normal. negative: Dysuria, Hematuria, Frequency, Discharge, Testicular Pain , Bleeding, , Other Auscultation: Bowel Sounds: Normal. negative: Bruit, Absent, Increased, Decreased, High Pitched, Other Palpation: Normal. negative: Spleen Enlarged, Liver Enlarged, Mass Pulsatile, Other Tenderness: Normal. negative: Rebound, Guarding, Rigidity Skin: Normal Musculoskeletal: Normal Psychiatric: Normal Mood Description: Calm Affect: Normal Speech Pattern: Clear - Assessment/Plan (1) Chest pain, rule out acute myocardial infarction Status: Acute Plan: district captain, serial cardiac enzymes/ekg, 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, continue to monitor
[2017-05-29] MEDS: TOPROL XL PO SCH (10:00)
--- NOTE | 2017-05-29 10:11 | PCM.PROG ---
Progress Note - Progress Note for Day of Date: 05/29/17 - Subjective Subjective: WAS ADMITTED FOR CHEST PAIN, RULE OUT ACUTE MIOCARDIAL INFARCTION. TODAY, SHE IS ALERT AND ORIENTED, LYING IN BED ON MORNING ROUNDS. SHE CONTINUES WITH COMPLAINTS OF MID-STERNAL CHEST PAIN AND MILD SHORTNESS OF BREATH. ON EXAMINATION, HEART IS REGULAR IN RATE AND RHYTHM. BILATERAL LUNGS ARE CLEAR TO AUSCULTATION. ABDOMEN IS ROUND, SOFT, AND NON-TENDER WITH NORMAL BOWEL SOUNDS NOTED IN ALL QUADRANTS. THERE IS NORMAL RANGE OF MOTION NOTED TO ALL EXTREMITIES. HER VITALS THIS MORNING ARE 98.2-76-15-96%-160/72. LABS WERE OBTAINED. ABNORMAL LAB VALUES INCLUDE THE FOLLOWING: HGB 9.7, HCT 29.2, CHLORIDE 109, CREATININE 1.05, GFR 55, CALCIUM 7.7, TOTAL PROTEIN 5.6, ALBUMIN 2.5. HDL CHOLESTEROL 39. CARDIAC ENZYMES HAVE BEEN WITHIN NORMAL LIMITS. TODAY S CHEST XRAY REPORTS CARDIOMEGALY WITHOUT CONGESTIVE HEART FAILURE, LUNGS CLEAR. TODAY, WE WILL OBTAIN AN ECHOCARDIOGRAM AND A CAROTID DOPPLER. WE WILL START METOPROLOL XL 25MG PO DAILY AND HOLD OTHER BLOOD PRESSURE MEDICATIONS. PATIENT IS SCHEDULED TO SEE IN [place] ON 06/07/17. WE WILL FOLLOW UP WITH AM LABS AND CONTINUE TO MONITOR PATIENT. - Past Medical Family Social History Past Med/Fam/Surg Hx: No changes since H&P Allergies: Allergies labetalol Allergy (Verified 05/28/17 17:22) ranitidine Allergy (Verified 05/28/17 12:33) - Review of Systems ROS: No change since H&P - Vital Signs and I&O's Vital Signs: Temperature 97.0 F Pulse Rate [Apical] 87 Pulse Rate 82 Respiratory Rate 23 Blood Pressure [Left Arm] 157/70 Blood Pressure [Right Arm] 126/60 Blood Pressure 119/55 O2 Sat by Pulse Oximetry 96 Intake and Output: Intake & Output 05/26/17 05/27/17 05/28/17 05/29/17 11:59 11:59 11:59 11:59 Intake Total 2476 Balance 2476 - Physical Exam Oriented: Normal Eyes: Normal. negative: Blurred Vision, Diplopia, Discharge, Pain, Redness, Photophobia, Other Ear: Normal. negative: Right, Left, Swelling, Ecchymosis, Hemotypanum, Abrasion , Laceration Nose: Normal. negative: Injected, Discharge, Blood, Other Throat: Normal. negative: Tonsillar Hypertrophy, Red, Exudate, Dry, Other Respiratory: Normal Cardiovascular: Normal. negative: Tachycardia, Bradycardia, Irregular, S3, S4, Systolic, Diastolic, Murmur, Edema, Other : Normal. negative: Dysuria, Hematuria, Frequency, Discharge, Testicular Pain , Bleeding, , Other Auscultation: Bowel Sounds: Normal. negative: Bruit, Absent, Increased, Decreased, High Pitched, Other Palpation: Normal Tenderness: Normal. negative: Rebound, Guarding, Rigidity Skin: Normal Musculoskeletal: Normal Psychiatric: Normal Mood Description: Calm Affect: Normal Speech Pattern: Clear - Laboratory and Diagnostics Result Diagrams: 05/29/17 04:50 05/29/17 04:50 Labs: Laboratory WBC 6.5 X10^3/uL (3.6-10.0) 05/29/17 04:50 RBC 3.77 X10^6/uL (3.5-5.4) 05/29/17 04:50 Hgb 9.7 g/dL (12.0-16.0) L 05/29/17 04:50 Hct 29.2 % (36.0-47.0) L 05/29/17 04:50 MCV 77.3 fL (80.0-100.0) L 05/29/17 04:50 MCH 25.6 pg (27.0-34.0) L 05/29/17 04:50 MCHC 33.1 g/dL (33.0-35.0) 05/29/17 04:50 RDW 17.1 % (11.6-16.5) H 05/29/17 04:50 Plt Count 168 X10^3/uL (150.0-450.0) 05/29/17 04:50 Plt Count Comment Adequate (ADEQUATE) 05/29/17 04:50 MPV 9.2 fL (7.4-11.0) 05/29/17 04:50 Neut % 54.9 % (42.0-75.0) 05/29/17 04:50 Lymph % 32.9 % (21.0-51.0) 05/29/17 04:50 [place] % 9.8 % (0.0-13.0) 05/29/17 04:50 Eos % 1.9 % (0.9-2.9) 05/29/17 04:50 Baso % 0.5 % (0.2-1.0) 05/29/17 04:50 Neut # 3.6 x10^3/uL (2.2-4.8) 05/29/17 04:50 Lymph # 2.1 X10^3/uL (1.3-2.9) 05/29/17 04:50 [place] # 0.6 x10^3/uL (0.3-0.8) 05/29/17 04:50 Eos # 0.1 x10^3/uL (0.0-0.2) 05/29/17 04:50 Baso # 0.0 X10^3/uL (0.0-0.1) 05/29/17 04:50 Absolute Nucleated RBC 0.0 /100WBC 05/29/17 04:50 Plt Morphology Comment Normal (NORMAL) 05/29/17 04:50 RBC Morphology Abnormal (NORMAL) A 05/29/17 04:50 Hypochromasia Slight A 05/29/17 04:50 Anisocytosis Slight A 05/29/17 04:50 Microcytosis Slight A 05/28/17 13:25 INR Target Range - 05/29/17 04:50 INR 0.97 (0.8-1.3) 05/29/17 04:50 PTT 24.7 SECONDS (22.9-36.5) 05/28/17 13:25 PTT Comment - 05/28/17 13:25 D-Dimer 1140 ng/mL (0-400) H* 05/28/17 13:25 Sodium 143 mmol/L (136-145) 05/29/17 04:50 Corrected Sodium TNP 05/29/17 04:50 Potassium 3.6 mmol/L (3.5-5.1) 05/29/17 04:50 Chloride 109 mmol/L (98-107) H 05/29/17 04:50 Carbon Dioxide 24.9 mmol/L (21-32) 05/29/17 04:50 BUN 17 mg/dL (7-18) 05/29/17 04:50 Creatinine 1.05 mg/dL (0.55-1.02) H 05/29/17 04:50 Est GFR (MDRD) Af Amer > 60 (>60) 05/29/17 04:50 Est GFR (MDRD) Non-Af 55 (>60) L 05/29/17 04:50 Glucose 99 mg/dL (65-99) 05/29/17 04:50 Calcium 7.7 mg/dL (8.5-10.1) L 05/29/17 04:50 Corrected Calcium 8.9 mg/dL (8.5-10.1) 05/29/17 04:50 Magnesium 2.0 mg/dL (1.7-2.9) 05/28/17 13:25 Total Bilirubin 0.20 mg/dL (0.2-1.0) 05/29/17 04:50 AST 22 Units/L (15-37) 05/29/17 04:50 ALT 19 Units/L (12-78) 05/29/17 04:50 Alkaline Phosphatase 98 Units/L (46-116) 05/29/17 04:50 Creatine Kinase 67 Units/L (26-192) 05/29/17 01:25 CK-MB (CK-2) < 1.0 ng/mL (0-4.0) 05/29/17 01:25 CK/CKMB % Calc 1.5 % (<4) 05/29/17 01:25 Troponin I < 0.02 ng/mL (0-1.5) 05/29/17 01:25 Total Protein 5.6 g/dL (6.4-8.2) L 05/29/17 04:50 Albumin 2.5 g/dL (3.4-5.0) L 05/29/17 04:50 Globulin 3.1 g/dL (2.5-4.5) 05/29/17 04:50 Albumin/Globulin Ratio 0.8 Ratio (1.1-2.1) L 05/29/17 04:50 Triglycerides 128 mg/dL (0-150) 05/29/17 04:50 Cholesterol 130 mg/dL (0-200) 05/29/17 04:50 LDL Cholesterol, Calc 65 mg/dL (0-100) 05/29/17 04:50 HDL Cholesterol 39 mg/dL (40-60) L 05/29/17 04:50 Cholesterol/HDL Ratio 3.3 (0.0-5.0) 05/29/17 04:50 - Plan (1) Chest pain, rule out acute myocardial infarction Status: Acute Plan: blocklayer, obtain ECHO and carotid doppler, 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, continue to monitor (2) Hypertension Status: Chronic Qualifiers: Hypertension type: essential hypertension Qualified Code(s): I10 - Essential (primary) hypertension Plan: metoprolol xl 25mg po daily,hydralazine 100mg po tid, continue to monitor (3) Depression Status: Chronic Qualifiers: Depression Type: major depressive disorder Major depression recurrence: recurrent Active/Remission status: remission status unspecified Qualified Code(s): F33.9 - Major depressive disorder, recurrent, unspecified Plan: continue lexapro, continue to monitor (4) GERD (gastroesophageal reflux disease) Status: Chronic Qualifiers: Esophagitis presence: esophagitis presence not specified Qualified Code(s) : K21.9 - Gastro-esophageal reflux disease without esophagitis Plan: cotninue prilosec, continue to monitor (5) Hyperlipidemia Status: Chronic Qualifiers: Hyperlipidemia type: mixed hyperlipidemia Qualified Code(s): E78.2 - Mixed hyperlipidemia Plan: continue crestor, continue to monitor
[2017-05-29] MEDS ORDERED: MORPHINE SULFATE INJ 2 MG INJ IVP PRN (10:18)
--- NOTE | 2017-05-29 15:06 | VAS ---
HISTORY: Concern for carotid artery stenosis. Chest pain and dyspnea. Technique: Multiple ramirez scale and color flow Doppler images of the right and left carotid arterial s ystem were obtained. The vertebral arterial system was evaluated as well. Findings: Nonocclusive color flow Doppler is seen throughout the right and left carotid arterial system. No hem odynamically significant carotid arterial stenosis is seen based on velocity criteria. There is mild atherosclerosis and plaque formation of the bilateral carotid bulbs and proximal ICAs with associated intimal thickening but without evidence for high-grade stenosis (>70%) or occlusion of the carotid a rteries. The right and left vertebral artery demonstrate antegrade flow. IMPRESSION: Mild atherosclerosis and plaque formation of the bilateral carotid bulbs and proximal ICAs with assoc iated carotid intimal thickening but without evidence for high-grade stenosis or occlusion of the car otid arteries, based on Doppler velocity criteria. Appropriate, antegrade, vertebral arterial flow. Peak right ICA velocity: 116 cm/sec. Peak left ICA velocity: 93 cm/sec. Right ICA to CCA ratio: 1.2. Left ICA to CCA ratio: 1.4. Reported By:
[2017-05-29 15:40] VITALS: BMI 27.4
[2017-05-29] MEDS: NEURONTIN CAP 100 MG PO SCH (21:41)
[2017-05-29] MEDS: CRESTOR TAB 10 MG PO SCH (21:42)
[2017-05-29] MEDS: RESTORIL CAP 30 MG PO SCH (21:58)
[2017-05-30] MEDS: APRESOLINE TAB 25 MG PO SCH ×3 (05:07→21:03)
[2017-05-30 05:31] LABS: BASOPHILS % (AUTO) 0.4 % (0.2-1.0); EOSINOPHILS # (AUTO) 0.1 x10^3/uL (0.0-0.2); EOSINOPHILS % (AUTO) 1.2 % (0.9-2.9); HEMATOCRIT 30.5 % (36.0-47.0); HEMOGLOBIN 10.2 g/dL (12.0-16.0); LYMPHOCYTES # (AUTO) 2.4 X10^3/uL (1.3-2.9); LYMPHOCYTES % (AUTO) 26.5 % (21.0-51.0); MEAN CORPUSCULAR HEMOGLOBIN 25.6 pg (27.0-34.0); MEAN CORPUSCULAR HGB CONC 33.3 g/dL (33.0-35.0); MEAN CORPUSCULAR VOLUME 76.7 fL (80.0-100.0); MEAN PLATELET VOLUME 8.9 fL (7.4-11.0); MONOCYTES # (AUTO) 0.9 x10^3/uL (0.3-0.8); MONOCYTES % (AUTO) 9.7 % (0.0-13.0); NEUTROPHILS # (AUTO) 5.6 x10^3/uL (2.2-4.8); NEUTROPHILS % (AUTO) 62.2 % (42.0-75.0); PLATELET COUNT 182 X10^3/uL (150.0-450.0); RED BLOOD COUNT 3.98 X10^6/uL (3.5-5.4); RED CELL DISTRIBUTION WIDTH 17.4 % (11.6-16.5)
[2017-05-30 05:49] LABS: HYPOCHROMASIA SLIGHT; PLATELET MORPHOLOGY COMMENT NORMAL (NORMAL)
[2017-05-30 05:50] LABS: ANISOCYTOSIS SLIGHT
[2017-05-30 05:54] LABS: ALANINE AMINOTRANSFERASE 19 Units/L (12-78); ALBUMIN 2.8 g/dL (3.4-5.0); ALKALINE PHOSPHATASE 103 Units/L (46-116); ASPARTATE AMINO TRANSFERASE 21 Units/L (15-37); BLOOD UREA NITROGEN 16 mg/dL (7-18); CALCIUM 8.1 mg/dL (8.5-10.1); CARBON DIOXIDE 25.5 mmol/L (21-32); CHLORIDE 110 mmol/L (98-107); COR CA(FOR HYPOALB) 9.1 mg/dL (8.5-10.1); CREATININE 1.05 mg/dL (0.55-1.02); SODIUM 144 mmol/L (136-145); TOTAL PROTEIN 6.3 g/dL (6.4-8.2); eGFR BLACK RACES > 60 (>60); eGFR NON BLACK RACES 55 (>60)
[2017-05-30] MEDS: NS 1000 ML 1,000 ML IV SCH ×4 (06:44→22:28)
[2017-05-30] MEDS ORDERED: POTASSIUM CHL 40 MEQ/NS 0.45% 500 ML IV PRN (07:10)
[2017-05-30] MEDS ORDERED: MAGNESIUM SULFATE 1 GM/100 mL PREMIX 1 GM/100 ML BAG IV PRN (07:10)
[2017-05-30] MEDS ORDERED: K-LYTE EFFERVESCENT PO PRN (07:10)
[2017-05-30] MEDS ORDERED: POTASSIUM CHL 60 MEQ/NS 0.45% 500 ML IV PRN (07:10)
[2017-05-30] MEDS ORDERED: POTASSIUM CHLORIDE LIQ 20 MEQ UDC PO PRN (07:10)
[2017-05-30] MEDS ORDERED: K-RIDER 10 MEQ/NS 100 ML 10 MEQ/100 ML BAG IV PRN (07:10)
[2017-05-30] MEDS ORDERED: MAG-OX TAB PO PRN (07:10)
[2017-05-30] MEDS ORDERED: LEXAPRO ONE (08:23)
[2017-05-30] MEDS: LEXAPRO PO SCH (08:34)
[2017-05-30] MEDS: TOPROL XL PO SCH (08:34)
[2017-05-30] MEDS: PriLOSEC PO SCH ×2 (08:34→20:41)
[2017-05-30] MEDS: MICRO K EXTEN CAP 10 MEQ PO SCH (08:34)
[2017-05-30] MEDS ORDERED: CATAPRES-TTS-2 TD SCH (10:00)
[2017-05-30] MEDS: MUCOMYST 20% 200 MG/ML PO SCH ×3 (12:35→20:40)
--- NOTE | 2017-05-30 18:47 | CT ---
History: Uncontrolled hypertension Study: CTA renal arteries with contrast. Three-dimensional MIPS were obtained in multiple degrees of obliquity. Sagittal and coronal reformations were provided. Oblique reformations were performed of th e renal arteries. Findings: There is moderate atherosclerotic disease in the wall of the abdominal aorta. There is no a neurysm or dissection. There are single renal arteries to each kidney. There are small calcified plaq ues at the origins of the both the right and left renal arteries. There is moderate to severe stenosi s at the origin of the right renal artery. There is no poststenotic dilatation. There is a 2.3 cm exo phytic cyst off the lower pole of the left kidney. There is no aneurysm of the renal arteries. Impression: 1. Moderate to severe stenosis at the origin of the right renal artery 2. Small calcified plaque without significant stenosis at the origin of the left renal artery Reported By:
[2017-05-30] MEDS: NORVASC TAB 10 MG PO SCH (19:45)
[2017-05-30] MEDS: CRESTOR TAB 10 MG PO SCH (20:40)
[2017-05-30] MEDS: RESTORIL CAP 30 MG PO SCH (20:41)
[2017-05-30] MEDS: NEURONTIN CAP 100 MG PO SCH (20:41)
[2017-05-31] MEDS: NS 1000 ML 1,000 ML IV SCH ×3 (05:23→21:13)
[2017-05-31] MEDS: APRESOLINE TAB 25 MG PO SCH ×3 (05:42→21:11)
[2017-05-31 05:51] LABS: BASOPHILS # (AUTO) 0.1 X10^3/uL (0.0-0.1); BASOPHILS % (AUTO) 1.4 % (0.2-1.0); EOSINOPHILS # (AUTO) 0.1 x10^3/uL (0.0-0.2); EOSINOPHILS % (AUTO) 1.2 % (0.9-2.9); HEMATOCRIT 32.8 % (36.0-47.0); HEMOGLOBIN 10.8 g/dL (12.0-16.0); LYMPHOCYTES # (AUTO) 2.3 X10^3/uL (1.3-2.9); LYMPHOCYTES % (AUTO) 24.9 % (21.0-51.0); MEAN CORPUSCULAR HGB CONC 32.8 g/dL (33.0-35.0); MEAN CORPUSCULAR VOLUME 76.3 fL (80.0-100.0); MEAN PLATELET VOLUME 9.2 fL (7.4-11.0); MONOCYTES # (AUTO) 0.8 x10^3/uL (0.3-0.8); MONOCYTES % (AUTO) 8.6 % (0.0-13.0); NEUTROPHILS # (AUTO) 5.9 x10^3/uL (2.2-4.8); NEUTROPHILS % (AUTO) 63.9 % (42.0-75.0); PLATELET COUNT 195 X10^3/uL (150.0-450.0); RED CELL DISTRIBUTION WIDTH 17.8 % (11.6-16.5); WHITE BLOOD COUNT 9.3 X10^3/uL (3.6-10.0)
[2017-05-31 06:03] LABS: HYPOCHROMASIA 1+; PLATELET MORPHOLOGY COMMENT NORMAL (NORMAL)
[2017-05-31 06:04] LABS: ANISOCYTOSIS SLIGHT
[2017-05-31 06:05] LABS: ALANINE AMINOTRANSFERASE 21 Units/L (12-78); ALBUMIN 2.9 g/dL (3.4-5.0); ALKALINE PHOSPHATASE 103 Units/L (46-116); ASPARTATE AMINO TRANSFERASE 36 Units/L (15-37); BLOOD UREA NITROGEN 12 mg/dL (7-18); CALCIUM 8.8 mg/dL (8.5-10.1); CARBON DIOXIDE 26.1 mmol/L (21-32); CHLORIDE 106 mmol/L (98-107); COR CA(FOR HYPOALB) 9.7 mg/dL (8.5-10.1); CREATININE 0.77 mg/dL (0.55-1.02); SODIUM 141 mmol/L (136-145); TOTAL PROTEIN 6.8 g/dL (6.4-8.2); eGFR BLACK RACES > 60 (>60); eGFR NON BLACK RACES > 60 (>60)
[2017-05-31] MEDS ORDERED: LEXAPRO ONE (08:08)
[2017-05-31] MEDS: LEXAPRO PO SCH (08:10)
[2017-05-31] MEDS: PriLOSEC PO SCH ×2 (08:10→20:53)
[2017-05-31] MEDS: TOPROL XL PO SCH (08:10)
[2017-05-31] MEDS: NORVASC TAB 10 MG PO SCH (08:10)
[2017-05-31] MEDS: MUCOMYST 20% 200 MG/ML PO SCH ×2 (08:10→20:53)
[2017-05-31] MEDS: MICRO K EXTEN CAP 10 MEQ PO SCH (08:10)
[2017-05-31] MEDS ORDERED: CATAPRES-TTS-3 TD SCH (10:00)
--- NOTE | 2017-05-31 12:23 | PCM.PROG ---
Progress Note - Progress Note for Day of Date: 05/30/17 - Subjective Subjective: WAS ADMITTED FOR CHEST PAIN, RULE OUT ACUTE MIOCARDIAL INFARCTION. TODAY, SHE IS ALERT AND ORIENTED, LYING IN BED ON MORNING ROUNDS. SHE DENIES CHEST PAIN THIS MORNING, BUT CONTINUES WITH SHORTNESS OF BREATH AND MALAISE. ON EXAMINATION, HEART IS REGULAR IN RATE AND RHYTHM. BILATERAL LUNGS ARE CLEAR TO AUSCULTATION. ABDOMEN IS ROUND, SOFT, AND NON-TENDER WITH NORMAL BOWEL SOUNDS NOTED IN ALL QUADRANTS. THERE IS NORMAL RANGE OF MOTION NOTED TO ALL EXTREMITIES. HER VITALS THIS MORNING ARE 98.8-74-23-97%-201/87. LABS WERE OBTAINED. ABNORMAL LAB VALUES INCLUDE THE FOLLOWING: HGB 10.2, HCT 30.5, POTASSIUM 3.4, CHLORIDE 110, CREATININE 1.05, GFR 55, CALCIUM 8.1, TOTAL PROTEIN 6.3, ALBUMIN 2.8. WE OBTAINED AN ECHOCARDIOGRAM YESTERDAY. IT REPORTS AN EJECTION FRACTION OF 63%. WE ALSO OBTAINED A CAROTID DOPPLER. IT REPORTED MILD ATHEROSCLEROSIS AND PLAQUE FORMATION OF THE BILATERAL CAROTID BULBS AND PROXIMAL ICA WITH ASSOCIATED CAROTID INTIMAL THICKENING BUT WITHOUT EVIDENCE FOR HIGH GRADE STENOSIS OR OCCLUSION OF THE CAROTID ARTERIES, BASED ON DOPPLER VELOCITY CRITERIA. APPROPRIATE, ANTEGRADE, VERTEBRAL ARTERIAL FLOW. TODAY, WE WILL ADD A CLONIDINE 0.2MG TD PATCH FOR SUSTAINTED HYPERTENSION. WE WILL ALSO ORDER A RENAL CTA. OTHERWISE, WE WILL FOLLOW UP WITH AM LABS AND CONTINUE TO MONITOR PATIENT. - Past Medical Family Social History Past Med/Fam/Surg Hx: No changes since H&P Allergies: Allergies labetalol Allergy (Verified 05/28/17 17:22) ranitidine Allergy (Verified 05/28/17 12:33) - Review of Systems ROS: No change since H&P - Vital Signs and I&O's Vital Signs: Temperature 98.6 F Pulse Rate [Apical] 71 Pulse Rate 82 Respiratory Rate 20 Blood Pressure [Left Arm] 164/71 Blood Pressure [Right Arm] 126/60 Blood Pressure 119/55 O2 Sat by Pulse Oximetry 95 Intake and Output: Intake & Output 05/29/17 05/30/17 05/31/17 06/01/17 11:59 11:59 11:59 11:59 Intake Total 3896 8241 2710 Balance 0106 0773 2710 - Physical Exam Oriented: Normal Eyes: Normal. negative: Blurred Vision, Diplopia, Discharge, Pain, Redness, Photophobia, Other Ear: Normal. negative: Right, Left, Swelling, Ecchymosis, Hemotypanum, Abrasion , Laceration Nose: Normal. negative: Injected, Discharge, Blood, Other Throat: Normal. negative: Tonsillar Hypertrophy, Red, Exudate, Dry, Other Respiratory: Normal Cardiovascular: Normal. negative: Tachycardia, Bradycardia, Irregular, S3, S4, Systolic, Diastolic, Murmur, Edema, Other : Normal. negative: Dysuria, Hematuria, Frequency, Discharge, Testicular Pain , Bleeding, , Other Auscultation: Bowel Sounds: Normal. negative: Bruit, Absent, Increased, Decreased, High Pitched, Other Palpation: Normal Tenderness: Normal. negative: Rebound, Guarding, Rigidity Skin: Normal Musculoskeletal: Normal Psychiatric: Normal Mood Description: Calm Affect: Normal Speech Pattern: Clear, Appropriate - Laboratory and Diagnostics Result Diagrams: 05/31/17 05:20 05/31/17 05:20 Labs: Laboratory WBC 9.3 X10^3/uL (3.6-10.0) 05/31/17 05:20 RBC 4.30 X10^6/uL (3.5-5.4) 05/31/17 05:20 Hgb 10.8 g/dL (12.0-16.0) L 05/31/17 05:20 Hct 32.8 % (36.0-47.0) L 05/31/17 05:20 MCV 76.3 fL (80.0-100.0) L 05/31/17 05:20 MCH 25.0 pg (27.0-34.0) L 05/31/17 05:20 MCHC 32.8 g/dL (33.0-35.0) L 05/31/17 05:20 RDW 17.8 % (11.6-16.5) H 05/31/17 05:20 Plt Count 195 X10^3/uL (150.0-450.0) 05/31/17 05:20 Plt Count Comment Adequate (ADEQUATE) 05/31/17 05:20 MPV 9.2 fL (7.4-11.0) 05/31/17 05:20 Neut % 63.9 % (42.0-75.0) 05/31/17 05:20 Lymph % 24.9 % (21.0-51.0) 05/31/17 05:20 Price % 8.6 % (0.0-13.0) 05/31/17 05:20 Eos % 1.2 % (0.9-2.9) 05/31/17 05:20 Baso % 1.4 % (0.2-1.0) H 05/31/17 05:20 Neut # 5.9 x10^3/uL (2.2-4.8) H 05/31/17 05:20 Lymph # 2.3 X10^3/uL (1.3-2.9) 05/31/17 05:20 Price # 0.8 x10^3/uL (0.3-0.8) 05/31/17 05:20 Eos # 0.1 x10^3/uL (0.0-0.2) 05/31/17 05:20 Baso # 0.1 X10^3/uL (0.0-0.1) 05/31/17 05:20 Absolute Nucleated RBC 0.1 /100WBC 05/31/17 05:20 Plt Morphology Comment Normal (NORMAL) 05/31/17 05:20 RBC Morphology Abnormal (NORMAL) A 05/31/17 05:20 Hypochromasia 1+ A 05/31/17 05:20 Anisocytosis Slight A 05/31/17 05:20 Microcytosis Slight A 05/28/17 13:25 INR Target Range - 05/29/17 04:50 INR 0.97 (0.8-1.3) 05/29/17 04:50 PTT 24.7 SECONDS (22.9-36.5) 05/28/17 13:25 PTT Comment - 05/28/17 13:25 D-Dimer 1140 ng/mL (0-400) H* 05/28/17 13:25 Sodium 141 mmol/L (136-145) 05/31/17 05:20 Corrected Sodium TNP 05/31/17 05:20 Potassium 3.8 mmol/L (3.5-5.1) 05/31/17 05:20 Chloride 106 mmol/L (98-107) 05/31/17 05:20 Carbon Dioxide 26.1 mmol/L (21-32) 05/31/17 05:20 BUN 12 mg/dL (7-18) 05/31/17 05:20 Creatinine 0.77 mg/dL (0.55-1.02) 05/31/17 05:20 Est GFR (MDRD) Af Amer > 60 (>60) 05/31/17 05:20 Est GFR (MDRD) Non-Af > 60 (>60) 05/31/17 05:20 Glucose 104 mg/dL (65-99) H 05/31/17 05:20 Calcium 8.8 mg/dL (8.5-10.1) 05/31/17 05:20 Corrected Calcium 9.7 mg/dL (8.5-10.1) 05/31/17 05:20 Magnesium 2.0 mg/dL (1.7-2.9) 05/31/17 05:20 Total Bilirubin 0.50 mg/dL (0.2-1.0) 05/31/17 05:20 AST 36 Units/L (15-37) 05/31/17 05:20 ALT 21 Units/L (12-78) 05/31/17 05:20 Alkaline Phosphatase 103 Units/L (46-116) 05/31/17 05:20 Creatine Kinase 67 Units/L (26-192) 05/29/17 01:25 CK-MB (CK-2) < 1.0 ng/mL (0-4.0) 05/29/17 01:25 CK/CKMB % Calc 1.5 % (<4) 05/29/17 01:25 Troponin I < 0.02 ng/mL (0-1.5) 05/29/17 01:25 Total Protein 6.8 g/dL (6.4-8.2) 05/31/17 05:20 Albumin 2.9 g/dL (3.4-5.0) L 05/31/17 05:20 Globulin 3.9 g/dL (2.5-4.5) 05/31/17 05:20 Albumin/Globulin Ratio 0.7 Ratio (1.1-2.1) L 05/31/17 05:20 Triglycerides 128 mg/dL (0-150) 05/29/17 04:50 Cholesterol 130 mg/dL (0-200) 05/29/17 04:50 LDL Cholesterol, Calc 65 mg/dL (0-100) 05/29/17 04:50 HDL Cholesterol 39 mg/dL (40-60) L 05/29/17 04:50 Cholesterol/HDL Ratio 3.3 (0.0-5.0) 05/29/17 04:50 - Plan (1) Chest pain, rule out acute myocardial infarction Status: Acute Plan: 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, 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, continue to monitor (2) Hypertension Status: Chronic Qualifiers: Hypertension type: essential hypertension Qualified Code(s): I10 - Essential (primary) hypertension Plan: clonidine 0.2mg td patch, renal artery CTA, metoprolol xl 25mg po daily, hydralazine 100mg po tid, continue to monitor (3) Depression Status: Chronic Qualifiers: Depression Type: major depressive disorder Major depression recurrence: recurrent Active/Remission status: remission status unspecified Qualified Code(s): F33.9 - Major depressive disorder, recurrent, unspecified Plan: continue lexapro, continue to monitor (4) GERD (gastroesophageal reflux disease) Status: Chronic Qualifiers: Esophagitis presence: esophagitis presence not specified Qualified Code(s) : K21.9 - Gastro-esophageal reflux disease without esophagitis Plan: cotninue prilosec, continue to monitor (5) Hyperlipidemia Status: Chronic Qualifiers: Hyperlipidemia type: mixed hyperlipidemia Qualified Code(s): E78.2 - Mixed hyperlipidemia Plan: continue crestor, continue to monitor
[2017-05-31] MEDS: RESTORIL CAP 30 MG PO SCH (20:53)
[2017-05-31] MEDS: CRESTOR TAB 10 MG PO SCH (20:53)
[2017-05-31] MEDS: NEURONTIN CAP 100 MG PO SCH (20:53)
[2017-05-31] MEDS: CHECK PATCH XX SCH (20:54)
--- NOTE | 2017-05-31 21:34 | PCM.PROG ---
Progress Note - Progress Note for Day of Date: 05/31/17 - Subjective Subjective: WAS ADMITTED FOR CHEST PAIN, RULE OUT ACUTE MIOCARDIAL INFARCTION. TODAY, SHE IS ALERT AND ORIENTED, LYING IN BED ON MORNING ROUNDS. SHE DENIES CHEST PAIN THIS MORNING, BUT CONTINUES SHORTNESS OF BREATH AND ELEVATED BLOOD PRESSURE ON EXAMINATION, HEART IS REGULAR IN RATE AND RHYTHM. BILATERAL LUNGS ARE CLEAR TO AUSCULTATION. ABDOMEN IS ROUND, SOFT, AND NON- TENDER WITH NORMAL BOWEL SOUNDS NOTED IN ALL QUADRANTS. THERE IS NORMAL RANGE OF MOTION NOTED TO ALL EXTREMITIES. HER VITALS THIS MORNING ARE 98.6-88-19-97%- 180/79. LABS WERE OBTAINED. ABNORMAL LAB VALUES INCLUDE THE FOLLOWING: HGB 10.8 , HCT 32.8, GLUCOSE 104, ALBUMIN 2.9. WE OBTAINED A RENAL ARTERY CTA TODAY. IT REPORTED MODERATE TO SEVERE STENOSIS AT THE ORIGIN OF THE RIGHT RENAL ARTERY. SMALL CALCIFIED PLAQUE WITHOUT SIGNIFICANT STENOSIS AT THE ORIGIN OF THE LEFT RENAL ARTERY. WE ADDED AMLODIPINE 10MG PO DAILY LAST NIGHT DUE TO PERSISTENT HYPERTENSION. TODAY, WE WILL INCREASE THE CLONIDINE PATCH TO 0.3MG TD WEEKLY. OTHERWISE, WE WILL FOLLOW UP WITH AM LABS AND CONTINUE TO MONITOR PATIENT. WE WILL PLAN FOR DISCHARGE TOMORROW IF BLOOD PRESSURE IS STABLE. - Past Medical Family Social History Past Med/Fam/Surg Hx: No changes since H&P Allergies: Allergies labetalol Allergy (Verified 05/28/17 17:22) ranitidine Allergy (Verified 05/28/17 12:33) - Review of Systems ROS: No change since H&P - Vital Signs and I&O's Vital Signs: Temperature 98.8 F Pulse Rate [Apical] 75 Pulse Rate 82 Respiratory Rate 28 Blood Pressure [Left Arm] 163/74 Blood Pressure [Right Arm] 126/60 Blood Pressure 119/55 O2 Sat by Pulse Oximetry 96 Intake and Output: Intake & Output 05/29/17 05/30/17 05/31/17 06/01/17 11:59 11:59 11:59 11:59 Intake Total 3981 6463 2710 1740 Balance 9976 8313 2710 1740 - Physical Exam Oriented: Normal Eyes: Normal. negative: Blurred Vision, Diplopia, Discharge, Pain, Redness, Photophobia, Other Ear: Normal. negative: Right, Left, Swelling, Ecchymosis, Hemotypanum, Abrasion , Laceration Nose: Normal. negative: Injected, Discharge, Blood, Other Throat: Normal. negative: Tonsillar Hypertrophy, Red, Exudate, Dry, Other Respiratory: Normal Cardiovascular: Normal. negative: Tachycardia, Bradycardia, Irregular, S3, S4, Systolic, Diastolic, Murmur, Edema, Other : Normal. negative: Dysuria, Hematuria, Frequency, Discharge, Testicular Pain , Bleeding, , Other Auscultation: Bowel Sounds: Normal. negative: Bruit, Absent, Increased, Decreased, High Pitched, Other Palpation: Normal Tenderness: Normal. negative: Rebound, Guarding, Rigidity Skin: Normal Musculoskeletal: Normal Psychiatric: Normal Mood Description: Calm Affect: Normal Speech Pattern: Clear, Appropriate - Laboratory and Diagnostics Result Diagrams: 05/31/17 05:20 05/31/17 05:20 Labs: Laboratory WBC 9.3 X10^3/uL (3.6-10.0) 05/31/17 05:20 RBC 4.30 X10^6/uL (3.5-5.4) 05/31/17 05:20 Hgb 10.8 g/dL (12.0-16.0) L 05/31/17 05:20 Hct 32.8 % (36.0-47.0) L 05/31/17 05:20 MCV 76.3 fL (80.0-100.0) L 05/31/17 05:20 MCH 25.0 pg (27.0-34.0) L 05/31/17 05:20 MCHC 32.8 g/dL (33.0-35.0) L 05/31/17 05:20 RDW 17.8 % (11.6-16.5) H 05/31/17 05:20 Plt Count 195 X10^3/uL (150.0-450.0) 05/31/17 05:20 Plt Count Comment Adequate (ADEQUATE) 05/31/17 05:20 MPV 9.2 fL (7.4-11.0) 05/31/17 05:20 Neut % 63.9 % (42.0-75.0) 05/31/17 05:20 Lymph % 24.9 % (21.0-51.0) 05/31/17 05:20 [place] % 8.6 % (0.0-13.0) 05/31/17 05:20 Eos % 1.2 % (0.9-2.9) 05/31/17 05:20 Baso % 1.4 % (0.2-1.0) H 05/31/17 05:20 Neut # 5.9 x10^3/uL (2.2-4.8) H 05/31/17 05:20 Lymph # 2.3 X10^3/uL (1.3-2.9) 05/31/17 05:20 [place] # 0.8 x10^3/uL (0.3-0.8) 05/31/17 05:20 Eos # 0.1 x10^3/uL (0.0-0.2) 05/31/17 05:20 Baso # 0.1 X10^3/uL (0.0-0.1) 05/31/17 05:20 Absolute Nucleated RBC 0.1 /100WBC 05/31/17 05:20 Plt Morphology Comment Normal (NORMAL) 05/31/17 05:20 RBC Morphology Abnormal (NORMAL) A 05/31/17 05:20 Hypochromasia 1+ A 05/31/17 05:20 Anisocytosis Slight A 05/31/17 05:20 Microcytosis Slight A 05/28/17 13:25 INR Target Range - 05/29/17 04:50 INR 0.97 (0.8-1.3) 05/29/17 04:50 PTT 24.7 SECONDS (22.9-36.5) 05/28/17 13:25 PTT Comment - 05/28/17 13:25 D-Dimer 1140 ng/mL (0-400) H* 05/28/17 13:25 Sodium 141 mmol/L (136-145) 05/31/17 05:20 Corrected Sodium TNP 05/31/17 05:20 Potassium 3.8 mmol/L (3.5-5.1) 05/31/17 05:20 Chloride 106 mmol/L (98-107) 05/31/17 05:20 Carbon Dioxide 26.1 mmol/L (21-32) 05/31/17 05:20 BUN 12 mg/dL (7-18) 05/31/17 05:20 Creatinine 0.77 mg/dL (0.55-1.02) 05/31/17 05:20 Est GFR (MDRD) Af Amer > 60 (>60) 05/31/17 05:20 Est GFR (MDRD) Non-Af > 60 (>60) 05/31/17 05:20 Glucose 104 mg/dL (65-99) H 05/31/17 05:20 Calcium 8.8 mg/dL (8.5-10.1) 05/31/17 05:20 Corrected Calcium 9.7 mg/dL (8.5-10.1) 05/31/17 05:20 Magnesium 2.0 mg/dL (1.7-2.9) 05/31/17 05:20 Total Bilirubin 0.50 mg/dL (0.2-1.0) 05/31/17 05:20 AST 36 Units/L (15-37) 05/31/17 05:20 ALT 21 Units/L (12-78) 05/31/17 05:20 Alkaline Phosphatase 103 Units/L (46-116) 05/31/17 05:20 Creatine Kinase 67 Units/L (26-192) 05/29/17 01:25 CK-MB (CK-2) < 1.0 ng/mL (0-4.0) 05/29/17 01:25 CK/CKMB % Calc 1.5 % (<4) 05/29/17 01:25 Troponin I < 0.02 ng/mL (0-1.5) 05/29/17 01:25 Total Protein 6.8 g/dL (6.4-8.2) 05/31/17 05:20 Albumin 2.9 g/dL (3.4-5.0) L 05/31/17 05:20 Globulin 3.9 g/dL (2.5-4.5) 05/31/17 05:20 Albumin/Globulin Ratio 0.7 Ratio (1.1-2.1) L 05/31/17 05:20 Triglycerides 128 mg/dL (0-150) 05/29/17 04:50 Cholesterol 130 mg/dL (0-200) 05/29/17 04:50 LDL Cholesterol, Calc 65 mg/dL (0-100) 05/29/17 04:50 HDL Cholesterol 39 mg/dL (40-60) L 05/29/17 04:50 Cholesterol/HDL Ratio 3.3 (0.0-5.0) 05/29/17 04:50 - Plan (1) Chest pain, rule out acute myocardial infarction Status: Acute 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: 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, 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, continue to monitor (2) Hypertension Status: Chronic Qualifiers: Hypertension type: essential hypertension Qualified Code(s): I10 - Essential (primary) hypertension Plan: clonidine 0.3 mg td patch, amlodipine 10mg po daily, metoprolol xl 25mg po daily,hydralazine 100mg po tid, continue to monitor (3) Depression Status: Chronic Qualifiers: Depression Type: major depressive disorder Major depression recurrence: recurrent Active/Remission status: remission status unspecified Qualified Code(s): F33.9 - Major depressive disorder, recurrent, unspecified Plan: continue lexapro, continue to monitor (4) GERD (gastroesophageal reflux disease) Status: Chronic Qualifiers: Esophagitis presence: esophagitis presence not specified Qualified Code(s) : K21.9 - Gastro-esophageal reflux disease without esophagitis Plan: cotninue prilosec, continue to monitor (5) Hyperlipidemia Status: Chronic Qualifiers: Hyperlipidemia type: mixed hyperlipidemia Qualified Code(s): E78.2 - Mixed hyperlipidemia Plan: continue crestor, continue to monitor
[2017-06-01] MEDS: NS 1000 ML 1,000 ML IV SCH ×2 (05:09→13:04)
[2017-06-01] MEDS: APRESOLINE TAB 25 MG PO SCH ×2 (05:44→13:04)
[2017-06-01 06:11] LABS: BASOPHILS % (AUTO) 0.4 % (0.2-1.0); EOSINOPHILS # (AUTO) 0.1 x10^3/uL (0.0-0.2); EOSINOPHILS % (AUTO) 1.2 % (0.9-2.9); HEMATOCRIT 32.7 % (36.0-47.0); HEMOGLOBIN 10.8 g/dL (12.0-16.0); LYMPHOCYTES # (AUTO) 2.2 X10^3/uL (1.3-2.9); LYMPHOCYTES % (AUTO) 23.4 % (21.0-51.0); MEAN CORPUSCULAR HEMOGLOBIN 25.2 pg (27.0-34.0); MEAN CORPUSCULAR VOLUME 76.4 fL (80.0-100.0); MEAN PLATELET VOLUME 8.9 fL (7.4-11.0); MONOCYTES # (AUTO) 0.9 x10^3/uL (0.3-0.8); MONOCYTES % (AUTO) 10.1 % (0.0-13.0); NEUTROPHILS # (AUTO) 6.1 x10^3/uL (2.2-4.8); NEUTROPHILS % (AUTO) 64.9 % (42.0-75.0); PLATELET COUNT 198 X10^3/uL (150.0-450.0); RED BLOOD COUNT 4.28 X10^6/uL (3.5-5.4); WHITE BLOOD COUNT 9.4 X10^3/uL (3.6-10.0)
[2017-06-01 06:24] LABS: ALANINE AMINOTRANSFERASE 22 Units/L (12-78); ALBUMIN 2.9 g/dL (3.4-5.0); ALKALINE PHOSPHATASE 99 Units/L (46-116); ASPARTATE AMINO TRANSFERASE 20 Units/L (15-37); BLOOD UREA NITROGEN 18 mg/dL (7-18); CALCIUM 8.7 mg/dL (8.5-10.1); CARBON DIOXIDE 26.4 mmol/L (21-32); CHLORIDE 107 mmol/L (98-107); COR CA(FOR HYPOALB) 9.6 mg/dL (8.5-10.1); COR NA(FOR HYPERGLY) 142 mmol/L (136-145); CREATININE 0.96 mg/dL (0.55-1.02); SODIUM 142 mmol/L (136-145); TOTAL PROTEIN 6.5 g/dL (6.4-8.2); eGFR BLACK RACES > 60 (>60); eGFR NON BLACK RACES > 60 (>60)
[2017-06-01 06:29] LABS: HYPOCHROMASIA SLIGHT; MICROCYTOSIS SLIGHT; PLATELET MORPHOLOGY COMMENT NORMAL (NORMAL)
[2017-06-01] MEDS ORDERED: LEXAPRO ONE (08:27)
[2017-06-01] MEDS: PriLOSEC PO SCH (08:32)
[2017-06-01] MEDS: MICRO K EXTEN CAP 10 MEQ PO SCH (08:32)
[2017-06-01] MEDS: LEXAPRO PO SCH (08:32)
[2017-06-01] MEDS: NORVASC TAB 10 MG PO SCH (08:32)
[2017-06-01] MEDS: TOPROL XL PO SCH (08:33)
[2017-06-01] MEDS: CHECK PATCH XX SCH (08:33)
[2017-06-01] MEDS: MUCOMYST 20% 200 MG/ML PO SCH (08:34)
[2017-06-01 12:19] VITALS: BP 153/68
== END 2017-06-01 13:15 | disposition home or self-care (01) | DRG 313 ==
LOC: ER 12:41 → ICU 16:18 → OBSVTOIN 05-30 09:00
PROVIDERS: ADMIT Obstetrics & Gynecology Obstetrics; ATTEND Internal Medicine
DX: R07.89 Other chest pain (principal); J44.9 Chronic obstructive pulmonary disease, unspecified; M13.89 Other specified arthritis, multiple sites; I25.10 Atherosclerotic heart disease of native coronary artery without angina pectoris; F33.8 Other recurrent depressive disorders; E78.2 Mixed hyperlipidemia; K21.9 Gastro-esophageal reflux disease without esophagitis; I10 Essential (primary) hypertension; R94.31 Abnormal electrocardiogram [ECG] [EKG]; R06.02 Shortness of breath; I51.7 Cardiomegaly
CPT/HCPCS: 36415; 71045; 71275; 74174; 80053; 80061; 82550; 82553; 83735; 84484; 85025; 85378; 85610; 85730; 93005; 93010; 93306; 93880; 96365; 96367; 99284; A4216; A4222; G8978; G8979; G0378; J2270; J2405; J7608

== ENCOUNTER → 2017-06-12 | Outpatient (CLI) | payer OTHER ==
[2017-06-01 12:19] VITALS: BP 153/68
[2017-06-12 12:10] LABS: BASOPHILS % (AUTO) 0.4 % (0.2-1.0); EOSINOPHILS # (AUTO) 0.1 x10^3/uL (0.0-0.2); EOSINOPHILS % (AUTO) 1.2 % (0.9-2.9); HEMATOCRIT 33.3 % (36.0-47.0); LYMPHOCYTES # (AUTO) 2.1 X10^3/uL (1.3-2.9); LYMPHOCYTES % (AUTO) 24.7 % (21.0-51.0); MEAN CORPUSCULAR HEMOGLOBIN 25.3 pg (27.0-34.0); MEAN CORPUSCULAR HGB CONC 32.9 g/dL (33.0-35.0); MEAN CORPUSCULAR VOLUME 76.8 fL (80.0-100.0); MEAN PLATELET VOLUME 8.8 fL (7.4-11.0); MONOCYTES # (AUTO) 0.6 x10^3/uL (0.3-0.8); MONOCYTES % (AUTO) 6.8 % (0.0-13.0); NEUTROPHILS # (AUTO) 5.7 x10^3/uL (2.2-4.8); NEUTROPHILS % (AUTO) 66.9 % (42.0-75.0); PLATELET COUNT 231 X10^3/uL (150.0-450.0); RED BLOOD COUNT 4.34 X10^6/uL (3.5-5.4); RED CELL DISTRIBUTION WIDTH 17.4 % (11.6-16.5); WHITE BLOOD COUNT 8.5 X10^3/uL (3.6-10.0)
[2017-06-12 12:17] LABS: PLATELET MORPHOLOGY COMMENT NORMAL (NORMAL)
[2017-06-12 12:24] LABS: ALANINE AMINOTRANSFERASE 27 Units/L (12-78); ALKALINE PHOSPHATASE 97 Units/L (46-116); ASPARTATE AMINO TRANSFERASE 25 Units/L (15-37); BILIRUBIN,DIRECT 0.09 mg/dL (0-0.2); BLOOD UREA NITROGEN 18 mg/dL (7-18); CALCIUM 8.2 mg/dL (8.5-10.1); CARBON DIOXIDE 29.4 mmol/L (21-32); CHLORIDE 109 mmol/L (98-107); CHOL/HDL RATIO 2.8 (0.0-5.0); CHOLESTEROL 147 mg/dL (0-200); CREATININE 1.08 mg/dL (0.55-1.02); HDL CHOLESTEROL 52 mg/dL (40-60); SODIUM 145 mmol/L (136-145); TOTAL PROTEIN 6.9 g/dL (6.4-8.2); TRIGLYCERIDES 205 mg/dL (0-150); eGFR BLACK RACES > 60 (>60); eGFR NON BLACK RACES 53 (>60)
== END ==
LOC: LAB 11:40
PROVIDERS: ATTEND Internal Medicine Cardiovascular Disease
DX: E78.4 Other hyperlipidemia (principal); I10 Essential (primary) hypertension
CPT/HCPCS: 36415; 80048; 80061; 80076; 85025

== ENCOUNTER → 2017-08-01 | Outpatient (CLI) | payer OTHER ==
[2017-08-01 13:27] LABS: BASOPHILS # (AUTO) 0.1 X10^3/uL (0.0-0.1); EOSINOPHILS # (AUTO) 0.2 x10^3/uL (0.0-0.2); EOSINOPHILS % (AUTO) 2.5 % (0.9-2.9); HEMATOCRIT 29.9 % (36.0-47.0); HEMOGLOBIN 9.8 g/dL (12.0-16.0); LYMPHOCYTES # (AUTO) 2.2 X10^3/uL (1.3-2.9); LYMPHOCYTES % (AUTO) 33.2 % (21.0-51.0); MEAN CORPUSCULAR HGB CONC 32.7 g/dL (33.0-35.0); MEAN CORPUSCULAR VOLUME 79.7 fL (80.0-100.0); MEAN PLATELET VOLUME 8.7 fL (7.4-11.0); MONOCYTES # (AUTO) 0.5 x10^3/uL (0.3-0.8); MONOCYTES % (AUTO) 8.1 % (0.0-13.0); NEUTROPHILS # (AUTO) 3.6 x10^3/uL (2.2-4.8); NEUTROPHILS % (AUTO) 55.2 % (42.0-75.0); PLATELET COUNT 218 X10^3/uL (150.0-450.0); RED BLOOD COUNT 3.75 X10^6/uL (3.5-5.4); RED CELL DISTRIBUTION WIDTH 19.1 % (11.6-16.5); WHITE BLOOD COUNT 6.6 X10^3/uL (3.6-10.0)
[2017-08-01 13:38] LABS: BLOOD UREA NITROGEN 13 mg/dL (7-18); CALCIUM 8.2 mg/dL (8.5-10.1); CARBON DIOXIDE 27.3 mmol/L (21-32); CHLORIDE 108 mmol/L (98-107); CHOL/HDL RATIO 2.9 (0.0-5.0); CHOLESTEROL 126 mg/dL (0-200); CREATININE 0.99 mg/dL (0.55-1.02); HDL CHOLESTEROL 43 mg/dL (40-60); PHOSPHORUS 3.3 mg/dL (2.6-4.7); SODIUM 143 mmol/L (136-145); TRIGLYCERIDES 175 mg/dL (0-150); URIC ACID 3.7 mg/dL (2.6-6.0); eGFR BLACK RACES > 60 (>60); eGFR NON BLACK RACES 59 (>60)
[2017-08-01 13:49] LABS: IRON 90 ug/dL (50-175); TOTAL IRON BINDING CAPACITY 265 ug/dL (250-450)
== END ==
LOC: LAB 12:52
PROVIDERS: ATTEND Internal Medicine
DX: I12.9 Hypertensive chronic kidney disease with stage 1 through stage 4 chronic kidney disease, or unspecified chronic kidney disease (principal); N18.3 Chronic kidney disease, stage 3 (moderate); R79.89 Other specified abnormal findings of blood chemistry
CPT/HCPCS: 36415; 80061; 80069; 82728; 83540; 83550; 84550; 85025

== ENCOUNTER 2018-05-31 09:34 | Inpatient (IN) ==
[2018-05-31] MEDS ORDERED: NS 500 ML IV 500 ML IV ONE (12:52)
[2018-05-31] MEDS ORDERED: TYLENOL 325 MG TAB PO PRN (12:52)
[2018-05-31] MEDS ORDERED: BENADRYL INJ 50 MG VIAL IVP PRN (12:52)
[2018-05-31 13:29] LABS: BASOPHILS % (AUTO) 0.4 % (0.2-1.0); EOSINOPHILS # (AUTO) 0.1 x10^3/uL (0.0-0.2); HEMOGLOBIN 7.8 g/dL (12.0-16.0); LYMPHOCYTES # (AUTO) 1.9 X10^3/uL (1.3-2.9); LYMPHOCYTES % (AUTO) 27.8 % (21.0-51.0); MEAN CORPUSCULAR HEMOGLOBIN 22.4 pg (27.0-34.0); MEAN CORPUSCULAR HGB CONC 31.3 g/dL (33.0-35.0); MEAN CORPUSCULAR VOLUME 71.8 fL (80.0-100.0); MEAN PLATELET VOLUME 8.8 fL (7.4-11.0); MONOCYTES # (AUTO) 0.6 x10^3/uL (0.3-0.8); NEUTROPHILS # (AUTO) 4.3 x10^3/uL (2.2-4.8); NEUTROPHILS % (AUTO) 61.8 % (42.0-75.0); PLATELET COUNT 284 X10^3/uL (150.0-450.0); RED BLOOD COUNT 3.48 X10^6/uL (3.5-5.4); RED CELL DISTRIBUTION WIDTH 18.6 % (11.6-16.5)
[2018-05-31 13:38] LABS: ALANINE AMINOTRANSFERASE 25 Units/L (12-78); ALBUMIN 3.1 g/dL (3.4-5.0); ALKALINE PHOSPHATASE 93 Units/L (46-116); ASPARTATE AMINO TRANSFERASE 23 Units/L (15-37); BLOOD UREA NITROGEN 12 mg/dL (7-18); CALCIUM 8.8 mg/dL (8.5-10.1); CARBON DIOXIDE 27.5 mmol/L (21-32); CHLORIDE 109 mmol/L (98-107); COR CA(FOR HYPOALB) 9.5 mg/dL (8.5-10.1); CREATININE 0.98 mg/dL (0.55-1.02); SODIUM 142 mmol/L (136-145); TOTAL PROTEIN 6.6 g/dL (6.4-8.2); eGFR NON BLACK RACES 59 (>60)
[2018-05-31 13:59] LABS: ANISOCYTOSIS SLIGHT; HYPOCHROMASIA 1+; PLATELET MORPHOLOGY COMMENT NORMAL (NORMAL)
[2018-05-31 14:00] LABS: MICROCYTOSIS SLIGHT
[2018-05-31] MEDS: PROTONIX INJ 40 MG VIAL IVP SCH ×2 (14:13→21:55)
[2018-05-31 14:14] LABS: IRON 29 ug/dL (50-175); TOTAL IRON BINDING CAPACITY 399 ug/dL (250-450)
[2018-05-31] MEDS: NS 1000 ML 1,000 ML IV SCH (14:14)
[2018-05-31 14:30] VITALS: BMI 26.6
[2018-05-31] MEDS: APRESOLINE TAB 25 MG PO ONE ×2 (18:13→18:32)
[2018-05-31] MEDS ORDERED: APRESOLINE TAB 25 MG ONE (18:16)
[2018-05-31 18:34] LABS: HEMATOCRIT 24.7 % (36.0-47.0); HEMOGLOBIN 7.6 g/dL (12.0-16.0)
[2018-05-31] MEDS: ULTRAM PO PRN (21:56)
[2018-05-31] MEDS ORDERED: HYDRALAZINE PO SCH (22:00)
[2018-05-31] MEDS: APRESOLINE TAB 25 MG PO SCH (22:00)
[2018-05-31] MEDS ORDERED: K-DUR TAB 20 MEQ PO SCH (22:00)
[2018-05-31] MEDS: RESTORIL CAP 30 MG PO SCH (22:00)
[2018-06-01] MEDS: APRESOLINE TAB 25 MG PO SCH ×3 (05:39→21:21)
[2018-06-01] MEDS: NS 1000 ML 1,000 ML IV SCH ×2 (05:39→17:27)
[2018-06-01 06:55] LABS: BASOPHILS % (AUTO) 0.6 % (0.2-1.0); EOSINOPHILS # (AUTO) 0.1 x10^3/uL (0.0-0.2); EOSINOPHILS % (AUTO) 1.7 % (0.9-2.9); HEMATOCRIT 30.3 % (36.0-47.0); LYMPHOCYTES # (AUTO) 2.1 X10^3/uL (1.3-2.9); LYMPHOCYTES % (AUTO) 35.1 % (21.0-51.0); MEAN CORPUSCULAR HEMOGLOBIN 24.3 pg (27.0-34.0); MEAN CORPUSCULAR VOLUME 75.8 fL (80.0-100.0); MEAN PLATELET VOLUME 8.9 fL (7.4-11.0); MONOCYTES # (AUTO) 0.7 x10^3/uL (0.3-0.8); MONOCYTES % (AUTO) 11.9 % (0.0-13.0); NEUTROPHILS % (AUTO) 50.7 % (42.0-75.0); PLATELET COUNT 236 X10^3/uL (150.0-450.0); RED CELL DISTRIBUTION WIDTH 20.7 % (11.6-16.5); WHITE BLOOD COUNT 5.9 X10^3/uL (3.6-10.0)
[2018-06-01 06:56] LABS: HEMOGLOBIN 9.7 g/dL (12.0-16.0)
[2018-06-01 07:14] LABS: ALANINE AMINOTRANSFERASE 24 Units/L (12-78); ALBUMIN 2.9 g/dL (3.4-5.0); ALKALINE PHOSPHATASE 87 Units/L (46-116); ASPARTATE AMINO TRANSFERASE 23 Units/L (15-37); BLOOD UREA NITROGEN 10 mg/dL (7-18); CALCIUM 8.1 mg/dL (8.5-10.1); CARBON DIOXIDE 24.1 mmol/L (21-32); CHLORIDE 109 mmol/L (98-107); CREATININE 0.97 mg/dL (0.55-1.02); SODIUM 143 mmol/L (136-145); TOTAL PROTEIN 6.1 g/dL (6.4-8.2); eGFR NON BLACK RACES 60 (>60)
[2018-06-01 07:25] LABS: ANISOCYTOSIS 1+; HYPOCHROMASIA 1+; PLATELET MORPHOLOGY COMMENT NORMAL (NORMAL)
[2018-06-01] MEDS ORDERED: LEXAPRO ONE (07:58)
[2018-06-01] MEDS: SINGULAIR TAB 10 MG PO SCH (08:03)
[2018-06-01] MEDS: TOPROL XL PO SCH (08:03)
[2018-06-01] MEDS: NexIUM PO SCH (08:03)
[2018-06-01] MEDS: PROTONIX INJ 40 MG VIAL IVP SCH ×2 (08:04→21:20)
[2018-06-01] MEDS: LEXAPRO PO SCH (08:04)
[2018-06-01] MEDS ORDERED: MIRABEGRON 50 MG PO SCH ×2 (09:00→21:00)
[2018-06-01] MEDS ORDERED: PATIENT'S HOME MEDICATION (Escitalopram Oxalate [Escitalopram Oxalate] 20 MG) PO SCH (09:00)
[2018-06-01] MEDS ORDERED: K-DUR TAB 20 MEQ PO SCH (09:00)
[2018-06-01] MEDS: ULTRAM PO PRN ×2 (11:31→21:21)
[2018-06-01] MEDS: XANAX PO SCH ×2 (11:32→21:21)
[2018-06-01] MEDS: CATAPRES-TTS-1 TD SCH ×2 (14:01→21:22)
[2018-06-01] MEDS: NORVASC TAB 5 MG PO SCH (17:16)
[2018-06-01 18:57] LABS: HEMATOCRIT 33.2 % (36.0-47.0); HEMOGLOBIN 10.6 g/dL (12.0-16.0)
[2018-06-01] MEDS ORDERED: PATIENT'S HOME MEDICATION (Levocetirizine [Levocetirizine] 5 MG) PO SCH (21:00)
[2018-06-01] MEDS ORDERED: NEURONTIN CAP 100 MG PO SCH (21:00)
[2018-06-01] MEDS ORDERED: ZyrTEC TAB 10 MG PO SCH (21:00)
[2018-06-01] MEDS ORDERED: TEMAZEPAM PO SCH (21:00)
[2018-06-01] MEDS: RESTORIL CAP 30 MG PO SCH (21:21)
--- NOTE | 2018-06-01 21:30 | DR.H&P ---
H&P - History & Physical for Day of: H&P Date: 05/31/18 - Chief Complaint Chief Complaint: ANEMIA - History of Present Illness History of Present Illness: A 73 YEAR OLD PATIENT OF OURS WHO PRESENTED TO THE HOSPITAL A DIRECT ADMISSION FROM THE OFFICE. OUTPATIENT LABS REVEALED A HEMOGLOBIN OF 6.9. WE ADMITTED PATIENT FOR FURTHER EVALUATION AND TREATMENT OF ANEMIA AND PLANNED TO TRANSFUSE WITH 2 UNITS OF PACKED RED BLOOD CELLS AND OBTAIN LABS ON ADMISSION. ON ADMISSION, VITALS WERE 98.3-79-18-98%-163/73. ABNORMAL LAB VALUES INCLUDED THE FOLLOWING: RBC 3.48, HGB 7.8, HCT 25.0, CHLORIDE 109, GLUCOSE 106, IRON 29, ALBUMIN 3.1. WE WILL TRANSFUSE 2 UNITS OF PACKED RED BLOOD CELLS AND MONITOR HEMOGLOBIN AND HEMATOCRIT. WE WILL OBTAIN STOOLS FOR OCCULT BLOOD AND CONSULT WITH GASTROENTEROLOGY. - Past Medical History Past Medical History: Angina, Anxiety, Arthritis, COPD, Coronary Artery Disease, Depression, Dyslipidemia, GERD, Hypertension, GA Additional Medical History: Frequent UTI's, Cervicalgia, Hx TIA, Micro-vascular disease, Multi-nodular goiter - Past Surgical History Surgical History: Appendectomy, , Cholecystectomy, Hysterectomy - Family History Family Medical History: Cancer, [place], Sudden Cardiac - Social History Does patient currently use any type of tobacco product: No Have you used tobacco products in the last 12 months: No Type of Tobacco Use: None Alcohol Use: None Drug Use: None - Medications Home Medications: labetalol Allergy (Verified 05/28/17 17:22) ranitidine Allergy (Verified 05/28/17 12:33) CONTINUE taking the following medications clopidogrel 75 mg PO DAILY 05/31/18 [History] esomeprazole magnesium 40 mg PO DAILY 05/31/18 [History] gabapentin 200 mg PO HS 05/31/18 [History] levocetirizine 5 mg PO HS 05/31/18 [History] metoprolol succinate 50 mg PO DAILY 05/31/18 [History] mirabegron [Myrbetriq] 50 mg PO DAILY 05/31/18 [History] potassium chloride 20 meq PO Q OTHER DAY 05/31/18 [History] - Review of Systems Constitutional: Weakness Eyes: No Symptoms Reported ENT: No Symptoms Reported Respiratory: No Symptoms Reported Cardiovascular: No Symptoms Reported Gastrointestinal: No Symptoms Reported Genitourinary: No Symptoms Reported Musculoskeletal: No Symptoms Reported Skin: No Symptoms Reported Neurological: Weakness - Physical Exam Vital Signs: Temperature 97.8 F Pulse Rate [Left Brachial] 64 Respiratory Rate 18 Blood Pressure [Left Arm] 210/96 Blood Pressure [Right Arm] 126/60 Blood Pressure 153/68 O2 Sat by Pulse Oximetry 98 Oriented: Normal Eyes: Normal Ear: Normal Nose: Normal Throat: Normal Respiratory: Diminished Throughout Cardiovascular: Normal : Normal Auscultation: Bowel Sounds: Normal Palpation: Normal Tenderness: Normal Skin: Normal Musculoskeletal: Normal Psychiatric: Normal Mood Description: Calm Affect: Normal Speech Pattern: Clear - Assessment/Plan (1) Anemia Qualifiers: Anemia type: acquired or hereditary hemolytic anemia Hemolytic anemia type: acquired, hemolytic-uremic syndrome Qualified Code(s): 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
[2018-06-02] MEDS ORDERED: CATAPRES TAB 0.1 MG PO ONE (00:01)
[2018-06-02] MEDS ORDERED: CATAPRES TAB 0.1 MG ONE (00:02)
[2018-06-02] MEDS: APRESOLINE TAB 25 MG PO SCH (05:34)
[2018-06-02] MEDS: NS 1000 ML 1,000 ML IV SCH (05:34)
[2018-06-02 07:03] LABS: BASOPHILS # (AUTO) 0.1 X10^3/uL (0.0-0.1); BASOPHILS % (AUTO) 0.8 % (0.2-1.0); EOSINOPHILS # (AUTO) 0.1 x10^3/uL (0.0-0.2); HEMATOCRIT 34.8 % (36.0-47.0); LYMPHOCYTES # (AUTO) 2.1 X10^3/uL (1.3-2.9); LYMPHOCYTES % (AUTO) 31.2 % (21.0-51.0); MEAN CORPUSCULAR HGB CONC 31.6 g/dL (33.0-35.0); MEAN CORPUSCULAR VOLUME 76.1 fL (80.0-100.0); MEAN PLATELET VOLUME 9.2 fL (7.4-11.0); MONOCYTES # (AUTO) 0.6 x10^3/uL (0.3-0.8); MONOCYTES % (AUTO) 9.3 % (0.0-13.0); NEUTROPHILS # (AUTO) 3.9 x10^3/uL (2.2-4.8); NEUTROPHILS % (AUTO) 56.7 % (42.0-75.0); PLATELET COUNT 251 X10^3/uL (150.0-450.0); RED BLOOD COUNT 4.58 X10^6/uL (3.5-5.4); RED CELL DISTRIBUTION WIDTH 20.9 % (11.6-16.5)
[2018-06-02 07:09] LABS: ALANINE AMINOTRANSFERASE 19 Units/L (12-78); ALBUMIN 2.8 g/dL (3.4-5.0); ALKALINE PHOSPHATASE 93 Units/L (46-116); BLOOD UREA NITROGEN 12 mg/dL (7-18); CALCIUM 8.4 mg/dL (8.5-10.1); CARBON DIOXIDE 22.4 mmol/L (21-32); CHLORIDE 108 mmol/L (98-107); COR CA(FOR HYPOALB) 9.4 mg/dL (8.5-10.1); CREATININE 1.05 mg/dL (0.55-1.02); SODIUM 143 mmol/L (136-145); TOTAL PROTEIN 6.3 g/dL (6.4-8.2); eGFR NON BLACK RACES 55 (>60)
[2018-06-02 07:15] LABS: ASPARTATE AMINO TRANSFERASE 30 Units/L (15-37)
[2018-06-02 07:25] LABS: PLATELET MORPHOLOGY COMMENT NORMAL (NORMAL); WHITE BLOOD COUNT 7.5 X10^3/uL (3.6-10.0)
[2018-06-02 07:26] LABS: ANISOCYTOSIS 1+; HYPOCHROMASIA SLIGHT
[2018-06-02] MEDS ORDERED: LEXAPRO ONE (08:19)
[2018-06-02] MEDS: XANAX PO SCH (09:37)
[2018-06-02] MEDS: NORVASC TAB 5 MG PO SCH (09:37)
[2018-06-02] MEDS: SINGULAIR TAB 10 MG PO SCH (09:37)
[2018-06-02] MEDS: PROTONIX INJ 40 MG VIAL IVP SCH (09:37)
[2018-06-02] MEDS: TOPROL XL PO SCH (09:37)
[2018-06-02] MEDS: NexIUM PO SCH (09:37)
[2018-06-02] MEDS: LEXAPRO PO SCH (09:38)
[2018-06-02 10:25] VITALS: BP 140/64
--- NOTE | 2018-06-04 09:48 | PCM.DCPLAN ---
Discharge Summary - Admission Date Date of Admission: 05/31/18 - Discharge Date Discharge Date: 06/02/18 - Admission Diagnoses (1) Anemia Status: Acute (2) Anxiety Status: Chronic (3) COPD (chronic obstructive pulmonary disease) Status: Chronic (4) Depression Status: Chronic (5) GERD (gastroesophageal reflux disease) Status: Chronic (6) History of [place] (myocardial infarction) Status: Chronic (7) Hyperlipidemia Status: Chronic (8) Hypertension Status: Chronic - Discharge Diagnoses Discharge Diagnosis: same as admission - Discharge Medications Discharge Medications: Home Medication List clopidogrel 75 mg PO DAILY 05/31/18 [History] esomeprazole magnesium 40 mg PO DAILY 05/31/18 [History] gabapentin 200 mg PO HS 05/31/18 [History] levocetirizine 5 mg PO HS 05/31/18 [History] metoprolol succinate 50 mg PO DAILY 05/31/18 [History] mirabegron 50 mg PO DAILY 05/31/18 [History] potassium chloride 20 meq PO Q OTHER DAY 05/31/18 [History] pantoprazole [Protonix] 40 mg PO QDAY #30 tab 06/02/18 [Rx] Prescriptions: pantoprazole [Protonix] KATGILDA - Hospital Course Vital Signs: Temperature 97.6 F Pulse Rate [Left Brachial] 61 Respiratory Rate 20 Blood Pressure [Left Arm] 140/64 Blood Pressure [Right Arm] 126/60 Blood Pressure 153/68 O2 Sat by Pulse Oximetry 94 Latest Lab Results: Laboratory Last Values WBC 7.5 X10^3/uL (3.6-10.0) 06/02/18 05:20 RBC 4.58 X10^6/uL (3.5-5.4) 06/02/18 05:20 Hgb 11.0 g/dL (12.0-16.0) L 06/02/18 05:20 Hct 34.8 % (36.0-47.0) L 06/02/18 05:20 MCV 76.1 fL (80.0-100.0) L 06/02/18 05:20 MCH 24.0 pg (27.0-34.0) L 06/02/18 05:20 MCHC 31.6 g/dL (33.0-35.0) L 06/02/18 05:20 RDW 20.9 % (11.6-16.5) H 06/02/18 05:20 Plt Count 251 X10^3/uL (150.0-450.0) 06/02/18 05:20 Plt Count Comment Adequate (ADEQUATE) 06/02/18 05:20 MPV 9.2 fL (7.4-11.0) 06/02/18 05:20 Neut % (Auto) 56.7 % (42.0-75.0) 06/02/18 05:20 Lymph % (Auto) 31.2 % (21.0-51.0) 06/02/18 05:20 Jenkins % (Auto) 9.3 % (0.0-13.0) 06/02/18 05:20 Eos % (Auto) 2.0 % (0.9-2.9) 06/02/18 05:20 Baso % (Auto) 0.8 % (0.2-1.0) 06/02/18 05:20 Neut # (Auto) 3.9 x10^3/uL (2.2-4.8) 06/02/18 05:20 Lymph # (Auto) 2.1 X10^3/uL (1.3-2.9) 06/02/18 05:20 Jenkins # (Auto) 0.6 x10^3/uL (0.3-0.8) 06/02/18 05:20 Eos # (Auto) 0.1 x10^3/uL (0.0-0.2) 06/02/18 05:20 Baso # (Auto) 0.1 X10^3/uL (0.0-0.1) 06/02/18 05:20 Absolute Nucleated RBC 0.1 /100WBC 06/02/18 05:20 Plt Morphology Comment Normal (NORMAL) 06/02/18 05:20 RBC Morphology Abnormal (NORMAL) A 06/02/18 05:20 Hypochromasia Slight A 06/02/18 05:20 Anisocytosis 1+ A 06/02/18 05:20 Microcytosis Slight A 05/31/18 13:04 Sodium 143 mmol/L (136-145) 06/02/18 05:20 Corrected Sodium TNP 06/02/18 05:20 Potassium 3.5 mmol/L (3.5-5.1) 06/02/18 05:20 Chloride 108 mmol/L (98-107) H 06/02/18 05:20 Carbon Dioxide 22.4 mmol/L (21-32) 06/02/18 05:20 BUN 12 mg/dL (7-18) 06/02/18 05:20 Creatinine 1.05 mg/dL (0.55-1.02) H 06/02/18 05:20 Est GFR (MDRD) Af Amer > 60 (>60) 06/02/18 05:20 Est GFR (MDRD) Non-Af 55 (>60) L 06/02/18 05:20 Glucose 103 mg/dL (65-99) H 06/02/18 05:20 Calcium 8.4 mg/dL (8.5-10.1) L 06/02/18 05:20 Corrected Calcium 9.4 mg/dL (8.5-10.1) 06/02/18 05:20 Iron 29 ug/dL (50-175) L 05/31/18 13:04 TIBC 399 ug/dL (250-450) 05/31/18 13:04 Transferrin 309 mg/dL (202-364) 05/31/18 13:04 Ferritin 13 ng/mL (8-252) 05/31/18 13:04 Total Bilirubin 0.40 mg/dL (0.2-1.0) 06/02/18 05:20 AST 30 Units/L (15-37) 06/02/18 05:20 ALT 19 Units/L (12-78) 06/02/18 05:20 Alkaline Phosphatase 93 Units/L (46-116) 06/02/18 05:20 Total Protein 6.3 g/dL (6.4-8.2) L 06/02/18 05:20 Albumin 2.8 g/dL (3.4-5.0) L 06/02/18 05:20 Globulin 3.5 g/dL (2.5-4.5) 06/02/18 05:20 Albumin/Globulin Ratio 0.8 Ratio (1.1-2.1) L 06/02/18 05:20 Vitamin B12 986 pg/mL (193-986) 05/31/18 13:04 Blood Type O POSITIVE 05/31/18 13:04 Antibody Screen Negative 05/31/18 13:04 Crossmatch See Detail 05/31/18 13:04 Hospital Course: A 73 YEAR OLD PATIENT OF OURS WHO PRESENTED TO THE HOSPITAL A DIRECT ADMISSION FROM THE OFFICE. OUTPATIENT LABS REVEALED A HEMOGLOBIN OF 6.9. WE ADMITTED PATIENT FOR FURTHER EVALUATION AND TREATMENT OF ANEMIA AND PLANNED TO TRANSFUSE WITH 2 UNITS OF PACKED RED BLOOD CELLS AND OBTAIN LABS ON ADMISSION. ON ADMISSION, VITALS WERE 98.3-79-18-98%-163/73. ABNORMAL LAB VALUES INCLUDED THE FOLLOWING: RBC 3.48, HGB 7.8, HCT 25.0, CHLORIDE 109, GLUCOSE 106, IRON 29, ALBUMIN 3.1. WE WILL TRANSFUSE 2 UNITS OF PACKED RED BLOOD CELLS AND MONITOR HEMOGLOBIN AND HEMATOCRIT. WE WILL OBTAIN STOOLS FOR OCCULT BLOOD AND CONSULT WITH GASTROENTEROLOGY. PT HGB IMPROVED TO 11, PT STATES SHE FEELS MUCH IMPROVED ASKING TO GO HOME. PT WAS D/C HOME TO F/U WITH PCP IN ONE WEEK, SEE D/C PLAN FOR MEDICATIONS AND FOLLOW INSTRUCTIONS AND REFERRALS, - Discharge Plan Disposition: HOME, SELF-CARE Condition: Stable Prescriptions: pantoprazole [Protonix] 40 mg PO QDAY #30 tab - Follow ups/Referrals Follow ups/Referrals: Luis Alberto Hernandez [Primary Care Provider] - 1 WEEK - Instructions Instructions: Anemia, Hypertension, [id number], Heart Failure, [id number] Additional Instructions: Prescription for Protonix 40mg take 1 by mouth once a day sent to [facility]. Continue home medications as prescribed. Diet as tolerated. Activity as tolerated. Follow up with Dr. Hernandez in 1 week. Follow up with Dr. Andre for a GI workup. If symptoms return or worsen see Dr. Hernandez immediately or return to the emergency room.
== END 2018-06-02 10:50 | disposition home or self-care (01) | DRG 812 ==
LOC: MED/SURG 12:11
PROVIDERS: ADMIT Internal Medicine; ATTEND Internal Medicine
DX: K21.9 Gastro-esophageal reflux disease without esophagitis; F41.8 Other specified anxiety disorders; I25.10 Atherosclerotic heart disease of native coronary artery without angina pectoris; I25.2 Old myocardial infarction; D64.89 Other specified anemias; J44.9 Chronic obstructive pulmonary disease, unspecified; I10 Essential (primary) hypertension; E78.2 Mixed hyperlipidemia; F32.89 Other specified depressive episodes
CPT/HCPCS: 36415; 36430; 80053; 82607; 82728; 83540; 83550; 84466; 85014; 85018; 85025; 86850; 86900; 86901; 86922; 94760; A4216; A4222; C9113; P9016; J1200; J3490; J7030; J7040